=== PATIENT | male | born 1935 | race Caucasian/White ===

== ENCOUNTER → 2017-01-12 | Outpatient (CLI) | payer OTHER, MEDICARE ==
[~2017-01-12] MED LIST: ASPI81TA28 PO; ATOR-24 PO; CHOL100027 PO; CITA10TA4 PO; CMD3 PO; COEN1CAP28 PO; ESCI10TA17 PO; OMEG10007 PO; POLY335019 PO; PRLSR20 PO; PSYL48.58 PO; WARF5TAB90 PO
[2017-01-12 09:32] LABS: BASO % 0.7 %; BASO ABS # 0.04 K/uL (0-0.2); COMPLETE YES; HEMATOCRIT 43.9 % (42-52); IG% 0.2 %; LYMPH % 29.8 %; LYMPH ABS # 1.64 K/uL (1.2-3.4); MEAN CORPUSCULAR HEMOGLOBIN 32.1 pg (25-34); MEAN CORPUSCULAR HGB CONC 34.9 g/dl (32-36); MEAN PLATELET VOLUME 9.9 fL (7.4-10.4); MONO % 9.3 %; PLATELET COUNT 162 K/uL (130-400); RED BLOOD COUNT 4.77 M/uL (4.7-6.1); WHITE BLOOD COUNT 5.51 K/uL (4.8-10.8)
[2017-01-12 09:43] LABS: ALT/SGPT 24 U/L (12-78); BLOOD UREA NITROGEN 18 mg/dl (7-18); BUN/CREATININE RATIO 19.2 (10-20); CARBON DIOXIDE 29 mmol/L (21-32); CHLORIDE 101 mmol/L (98-107); CREATININE 0.92 mg/dl (0.60-1.40); GLUCOSE 86 mg/dl (70-99); POTASSIUM 4.1 mmol/L (3.5-5.1); SODIUM 137 mmol/L (136-145)
[2017-01-12 09:47] LABS: ALB/GLOB RATIO 1.1 (0.9-2); ALKALINE PHOSPHATASE 81 U/L (45-117); AST/SGOT 19 U/L (15-37); CHOLESTEROL 137 mg/dl (0-200); CHOLESTEROL/HDL RATIO 1.9; HDL CHOLESTEROL 74 mg/dl; LDL CHOLESTEROL CALCULATED 56 mg/dl; TRIGLYCERIDES 37 mg/dl (0-150); VERY LOW DENSITY LIPOPROT CALC 7 mg/dl
[2017-01-12 09:48] LABS: CALCIUM 9.3 mg/dl (8.5-10.1)
== END | disposition home or self-care (01) ==
LOC: C.LAB 07:28
PROVIDERS: ATTEND Internal Medicine
DX: Z79.01 Long term (current) use of anticoagulants (principal); Z12.5 Encounter for screening for malignant neoplasm of prostate

== ENCOUNTER 2018-01-01 13:07 | Emergency (ER) | payer OTHER, MEDICARE ==
[~2018-01-01] VITALS: Ht 172.7 cm; Wt 72.5 kg
[~2018-01-01 13:07] MED LIST changes: -CITA10TA4 PO; -CMD3 PO; -COEN1CAP28 PO; -OMEG10007 PO
[2018-01-01 13:13] VITALS: TEMP 36.8; Ht 172.7 cm; Wt 72.5 kg
[2018-01-01] MEDS ORDERED: BACITRACIN OINT 15 GM TUBE ONE (13:41)
--- NOTE | 2018-01-01 14:18 | EMERGENCY ROOM VISIT NOTE ---
History First contact with patient: 13:27 Chief Complaint: LACERATION/CUT (SUT/DERMABOND) Stated Complaint: CUT LEFT ARM - BLEEDING Nursing Triage Summary: triage note: Pt reports he stumbled and fell against to the side of his house. pt reports he cut his left elbow. pt reports he has a known balance problem. unable to assess left elbow cut in triage due to dressing intact on pt. History of Present Illness The patient is a 82 year old male who presents to the Emergency Room with complaints of an injury to his left arm. The patient reports that he lost balance and stumbled, scraping his left arm against the side of his house. This occurred a few hours ago. Patient reports a long history of balance problems and has had significant workup from his primary care provider due to this. He states that the symptoms today were not out of the ordinary for him. He contacted his PCP regarding the injury to his arm and was told to come here for evaluation. The patient takes Coumadin for a history of atrial fibrillation and follows with the anticoagulation clinic for this. He denies pain, numbness or weakness. His tetanus is up-to-date. Review of Systems A complete 6 point review of systems was reviewed with the patient with pertinent positives and negatives as per history of present illness. All else were negative. Past Medical/Surgical History Medical Problems: (1) A-fib (2) BPH (3) High cholesterol (4) Transient weakness of left lower extremity (5) Transient weakness of right lower extremity Surgical Problems: (1) H/O cardiac catheterization (2) S/P cataract surgery Family History FH: aneurysm Social History Smoking Status: Never Smoker Alcohol Use: none Drug Use: none Marital Status: Housing Status: lives with family Occupation Status: retired Current/Historical Medications Scheduled Aspirin (Aspirin Ec), 81 MG PO DAILY Atorvastatin (Lipitor), 40 MG PO QPM Cholecalciferol (Vitamin D 1000 Unit), 1,000 INTER.UNIT PO NOON Escitalopram (Lexapro), 15 MG PO DAILY Omeprazole (Prilosec), 20 MG PO QAM Warfarin Sodium (Coumadin), 4 MG PO DAILY Scheduled PRN Polyethylene Glycol 3350 (Miralax), 17 GM PO QPM PRN for Constipation Psyllium (Metamucil Original Textur), 1 TSP PO DAILY PRN for Constipation Physical Exam Vital Signs Date Time Temp Pulse Resp B/P (MAP) Pulse Ox O2 Delivery O2 Flow Rate FiO2 01/01/18 14:30 52 18 130/76 98 01/01/18 13:13 36.8 59 18 158/49 98 Room Air Physical Exam VITALS: Vitals are noted on the nurse's note and reviewed by myself. Vital signs stable. GENERAL: This is an 82-year-old male, in no acute distress, nondiaphoretic, well -developed well-nourished. SKIN: There is a superficial skin tear to the lateral aspect of the left elbow. No deep lacerations. The wound is clean appearing with no foreign body is present. MUSCULOSKELETAL: Full range of motion of the left elbow with no significant tenderness to palpation. NEURO: Patient was alert and oriented to person place and time. Sensation intact. Medical Decision & Procedures Medications Administered Medications (Trade) Dose Ordered Sig/Sienna Route Start Time Stop Time Status Last Admin Dose Admin Bacitracin (Bacitracin Oint) 45 appln STK-MED ONCE .ROUTE 01/01/18 13:41 01/01/18 13:42 DC 01/01/18 13:41 45 APPLN Medical Decision The patient was evaluated as above. Dressing was applied to the wound by nursing staff. Wound care instructions were discussed with the patient. He verbalized understanding of my assessment and treatment plan and was discharged home in good condition. The patient was independently evaluated by Dr. Nicole, ED attending physician, who agreed with my assessment and treatment plan. Medication Reconcilliation Current Medication List: was personally reviewed by me Blood Pressure Screening Patient's blood pressure: Elevated blood pressure Blood pressure disposition: Elevated BP felt to be situational Impression Primary Impression: Skin tear of elbow without complication Departure Information Dispostion Home / Self-Care Condition GOOD Referrals Evens Giron M.D. (PCP) Patient Instructions My [facility] Additional Instructions Proper wound care is essential for adequate wound healing and infection prevention. You can shower and clean the wound with soap and water. Do not scour over the wound, pat dry with a towel. Do not submerse the wound (i.e. bathe or dish wash) until the wound has fully healed. You can use an antibiotic ointment with a dressing over the wound for the next 3-4 days. After this time you may leave the wound dry and open to the air. For pain control, you can use the following [id number] medicines (if >12 yo): - Regular strength (325mg/tab) Tylenol (acetaminophen) 2 tabs every 4-6 hours as needed. Do not exceed 12 tablets in a 24 hour period. Avoid taking more than 4 grams (4000 mg) of Tylenol per day. This includes any other sources of acetaminophen you may take on a regular basis. Follow-up with your primary care provider for a recheck of the wound in 1 week. Return here for any signs of infection such as increasing redness, swelling, drainage from the wound or other new/concerning symptoms. Problem Qualifiers Primary Impression: Skin tear of elbow without complication Encounter type: initial encounter Laterality: left Qualified Codes: S51.012A - Laceration without foreign body of left elbow, initial encounter
[2018-01-01 14:30] VITALS: BP 130/76; PULSE 52; O2SAT 98
== END 2018-01-01 14:32 | disposition home or self-care (01) ==
LOC: C.EDB 13:08 → C.EDD 14:32
DX: S51.012A Laceration without foreign body of left elbow, initial encounter (principal); W22.8XXA Striking against or struck by other objects, initial encounter; Y92.009 Unspecified place in unspecified non-institutional (private) residence as the place of occurrence of the external cause; Z79.01 Long term (current) use of anticoagulants; I48.91 Unspecified atrial fibrillation; N40.0 Benign prostatic hyperplasia without lower urinary tract symptoms; E78.00 Pure hypercholesterolemia, unspecified; Z98.49 Cataract extraction status, unspecified eye; Z79.82 Long term (current) use of aspirin; Z79.899 Other long term (current) drug therapy

== ENCOUNTER 2022-07-16 16:49 | Inpatient (IN) ==
[2022-07-16] MEDS ORDERED: SODIUM CHLORIDE 0.9% 500 ML IV SCH (17:00)
--- NOTE | 2022-07-16 17:03 | Emergency Department Note ---
Impression & Plan Altered mental status, Dementia, Aggressive behavior, Acute UTI ED Provider Note NAME: HOLLI FUNG AGE: 87 SEX: M : 1935 ARRIVES VIA: Ambulance INFORMANT: [Patient][ems, nursing] ED PROVIDER(S): [Seferino Sierra MD] CHIEF COMPLAINT: Illness HISTORY OF PRESENT ILLNESS: The patient is a 87-year-old male who had a violent, anger outburst burst today towards his . Apparently, as per his , he has had a few of these outbursts the last few days. No physical violence reported. As per EMS, the patient has been cooperative during his time under their care. He has no complaints at the present time other than, he needs to urinate. The patient can really not provide any history. He has dementia. As per his family, he has had no cough or congestion. No shortness of breath. He has not been sick or ill, no medication changes. Given the circumstances, no further history obtainable. REVIEW OF SYSTEMS: Unobtainable given his dementia. PMHx/PSHx: See Below SOCIAL HISTORY: See Below. PHYSICAL EXAM: GENERAL: Patient is in no acute distress. Thin and frail. HEENT: No acute trauma, normocephalic atraumatic, mucous membranes moist, no nasal congestion, no scleral icterus. NECK: No stridor, no adenopathy, no meningismus, trachea is midline. LUNGS: Clear to auscultation bilaterally when listening anterior, no rhonchi or wheezing, no respiratory distress. HEART: Without murmurs gallops or rubs, regular rate and rhythm. Heart tones are distant. ABDOMEN: Soft, nontender, bowel sounds positive, no peritonitis. EXTREMITIES: No cyanosis or edema, full range of motion of all the joints without pain or difficulty, no signs for acute trauma. NEUROLOGIC: Awake and alert, no acute motor or sensory deficits, no focal weakness. Cooperative. Calm. SKIN: No rash, no jaundice, no diaphoresis. DIFFERENTIAL DIAGNOSIS: Worsening dementia, intracranial bleeding, UTI, infection, electrolyte imbalance, anemia, urinary retention, among others. EMERGENCY DEPARTMENT COURSE/PROCEDURES: ECG: Indication was change in behavior and mentation. The ECG shows atrial fibrillation with a rate of 68. PVCs are present. There is a potential old anterior infarct. There is no ST elevation. There is some T wave inversion in the inferior leads. QTC is 446. Compared to an ECG from 30 April 2020, inferior T wave inversions are now present. PVCs are now present. Continuous Cardiac Monitoring: An order was placed for continuous cardiac monitoring. The monitor shows a rate of 62 with atrial fibrillation. Post void bladder scan did not show any significant retention. MEDICAL DECISION MAKING: There is no leukocytosis or concerning anemia. There is a normal platelet count. No renal failure or significant electrolyte abnormality. No concerning liver enzyme elevation. ECG shows atrial fibrillation, no acute ischemia. Ca rdiac enzyme testing x1 is not consistent with acute cardiac injury. Patient appears to be in a euthyroid state. Urinalysis does show infection. COVID, influenza and RSV test were negative. Chest film did not show pneumonia or CHF. Brain CT showed no acute bleed or mass-effect. The patient presents with aggressive outbursts. He has underlying dementia and now appears to have a UTI. His family does not feel he is safe for discharge home, they are worried that he may hurt himself or someone else in the family. I do believe the UTI could be responsible for his change in behavior and current mental state. The patient was given IV ceftriaxone, he was given IV saline. I did speak with the family, I spoke with case management, the on-call hospitalist was consulted. Patient has been cooperative during his stay in the ED. Past Med/Surg History Medical History A-fib Abnormal EKG Acid reflux disease Acute hyponatremia Angioma Anxiety Ataxia Atrial flutter Atypical chest pain BMI 23.0-23.9, adult CAD (coronary artery disease) Carotid artery plaque Cerebral arterial aneurysm Cerebrovascular disease Cognitive and behavioral changes Compression fracture Constipation Diarrhea Elevated PSA Enlarged prostate with lower urinary tract symptoms (LUTS) Generalized weakness High cholesterol Hyperlipidemia Hypertension Hyponatremia Lightheadedness Mild cognitive impairment Moderate mitral regurgitation Multiple benign nevi Obstructive sleep apnea Osteopenia hx compression fx. alendronate started 01/2019 Paroxysmal atrial fibrillation Poor balance Seborrheic keratosis Skin tear of elbow without complication Subungual hemorrhage Transient weakness of left lower extremity Transient weakness of right lower extremity Vitamin D deficiency Weakness Surgical History H/O cardiac catheterization History of colonoscopy History of hernia surgery History of rectal surgery S/P cataract surgery Family History Brother Prostate cancer Unknown Prostate cancer Other No significant family history Denies family history of Ovarian cancer Breast cancer Lung cancer Colorectal cancer Social History Smoking Status: Never smoker Second Hand Exposure: No; Do You Dip or Chew Tobacco: No; Hx Alcohol Use: No Hx Substance Use: No Preferred Language: Italian Communication Ability: Impaired Communication Ability Comment: Pt has dementia Visual Impairment: Limited Hearing Ability: Normal 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 Beliefs That Will Affect Care: None marital status: Current Living Situation: Spouse current occupational status: retired Other Information That Helps Us Care for You: No Feels Safe at Home: Yes Safety Concerns: Feels Safe At This Time Childhood Exposure to Second-Hand Smoke: No caffeine: No Dental Care, Regularly: Yes Physical Activity Frequency: 1-2 Times per Week Seatbelt Use: always Sunscreen Use: Yes Assistive Devices: Glasses and Walker Allergies Allergies Allergy/AdvReac Type Severity Reaction Status Date / Time Penicillins Allergy Mild UNKNOWN Verified 07/13/22 11:47 Sulfa (Sulfonamide Allergy Unknown UNKNOWN Verified 07/13/22 11:47 Antibiotics) thimerosal Allergy Unknown SWELLING Verified 07/13/22 11:47 AT SITE OF APPLICATION Home Meds Home Medications Medication Instructions Recorded Confirmed ascorbic acid (vitamin C) 500 mg 500 mg PO QPM 05/09/19 07/13/22 capsule calcium carbonate 600 mg calcium 600 mg PO AMPM 05/09/19 07/13/22 (1,500 mg) tablet (Calcium) cholecalciferol (vitamin D3) 25 1,000 units PO QAM #0 tabs 05/09/19 07/13/22 mcg (1,000 unit) tablet (Vitamin D3) [id number]-dbm-[id number] acid-vit 1 tab PO QAM 09/29/21 07/13/22 K-lycop 400 mcg-20 mcg-370 mcg tablet (Men's 50 Plus Multivitamin) atorvastatin 40 mg tablet (Lipitor) 40 mg PO HS 04/30/22 07/13/22 tamsulosin 0.4 mg capsule 0.4 mg PO HS 04/30/22 07/13/22 Previous Rx's Medication Instructions Recorded alendronate 70 mg tablet 70 mg PO WK #12 tabs 07/26/21 escitalopram oxalate 10 mg tablet 10 mg PO QAM #90 tabs 01/26/22 (Lexapro) warfarin 4 mg tablet See Rx Instructions PO UD #90 tabs 02/15/22 omeprazole magnesium 20 mg 20 mg PO QAM #90 caps 05/04/22 tablet,delayed release (Prilosec OTC) donepezil 10 mg tablet 10 mg PO HS #90 tabs 06/27/22 memantine 10 mg tablet (Namenda) 10 mg PO BID 90 days #180 tabs 07/12/22 Results & Data (ED) Vital Signs Vital Signs - 24 hr 07/16/22 16:58 07/16/22 17:28 07/16/22 16:57 Temperature 36.9 C Temperature Source Oral Pulse Rate 62 61 Pulse Rate [Brachial] Pulse Rate from SpO2 Sensor 62 Pulse Rhythm Regular Pulse Strength Normal Respiratory Rate 20 31 H Respiratory Effort / Characteristics Non-Labored Spontaneous Respiratory Depth Normal Respiratory Pattern Regular Blood Pressure 113/54 L Blood Pressure [Right Arm] Blood Pressure Mean 73 Blood Pressure Mean [Right Arm] Blood Pressure Position Sitting Blood Pressure Position [Right Arm] Pulse Oximetry 99 96 Oxygen Delivery Method Room Air Room Air Sepsis Recent Fever Within 48 Hours No Sepsis New/Unexplained Change in Mental Status N/A Sepsis Action Taken by Nursing No Action Required 07/16/22 17:00 07/16/22 17:00 07/16/22 17:30 Temperature Temperature Source Pulse Rate 71 63 Pulse Rate [Brachial] Pulse Rate from SpO2 Sensor 86 64 Pulse Rhythm Pulse Strength Respiratory Rate 23 15 Respiratory Effort / Characteristics Respiratory Depth Respiratory Pattern Blood Pressure 110/85 Blood Pressure [Right Arm] Blood Pressure Mean 93 Blood Pressure Mean [Right Arm] Blood Pressure Position Blood Pressure Position [Right Arm] Pulse Oximetry 90 99 Oxygen Delivery Method Sepsis Recent Fever Within 48 Hours Sepsis New/Unexplained Change in Mental Status Sepsis Action Taken by Nursing 07/16/22 18:00 07/16/22 18:02 07/16/22 18:02 Temperature Temperature Source Pulse Rate 67 68 Pulse Rate [Brachial] Pulse Rate from SpO2 Sensor 75 Pulse Rhythm Pulse Strength Respiratory Rate 18 16 Respiratory Effort / Characteristics Respiratory Depth Respiratory Pattern Blood Pressure 106/82 Blood Pressure [Right Arm] Blood Pressure Mean 90 Blood Pressure Mean [Right Arm] Blood Pressure Position Blood Pressure Position [Right Arm] Pulse Oximetry 92 Oxygen Delivery Method Sepsis Recent Fever Within 48 Hours Sepsis New/Unexplained Change in Mental Status Sepsis Action Taken by Nursing 07/16/22 19:58 Temperature Temperature Source Pulse Rate Pulse Rate [Brachial] 74 Pulse Rate from SpO2 Sensor Pulse Rhythm Pulse Strength Respiratory Rate Respiratory Effort / Characteristics Non-Labored Spontaneous Respiratory Depth Normal Respiratory Pattern Blood Pressure Blood Pressure [Right Arm] 132/85 Blood Pressure Mean Blood Pressure Mean [Right Arm] 100 Blood Pressure Position Blood Pressure Position [Right Arm] Lying Pulse Oximetry Oxygen Delivery Method Sepsis Recent Fever Within 48 Hours Sepsis New/Unexplained Change in Mental Status Sepsis Action Taken by [facility] Medications Current Medication List: was personally reviewed by me Laboratory Data Attestation: I reviewed the patient's lab results. Result diagrams: 07/16/22 17:18 07/16/22 17:18 Lab Results 07/16/22 07/16/22 07/16/22 Range/Units 17:03 17:18 17:18 WBC 4.36 L (4.8-10.8) K/ul RBC 4.08 L (4.63-6.08) M/uL Hgb 13.2 L (14.0-18.0) g/dl Hct 38.7 L (40.1-51.0) % MCV 94.9 (80.0-100.0) fL MCH 32.4 (25.0-34.0) pg MCHC 34.1 (32.0-36.0) g/dL RDW Std Deviation 45.3 (36.4-46.3) fL RDW Coeff of Susan 13.2 (11.5-14.5) % Plt Count 145 (130-400) K/uL MPV 10.6 (9.4-12.4) fL Immature Gran % (Auto) 0.2 % Neut % (Auto) 65.1 % Lymph % (Auto) 25.0 % [place] % (Auto) 8.5 % Eos % (Auto) 0.7 % Baso % (Auto) 0.5 % Neut # (Auto) 2.84 (1.4-6.5) K/uL Lymph # (Auto) 1.09 L (1.2-3.4) K/uL [place] # (Auto) 0.37 (0.24-0.82) K/uL Eos # (Auto) 0.03 (0-0.50) K/uL Baso # (Auto) 0.02 (0-0.2) K/uL Immature Gran # (Auto) 0.01 (0.00-0.02) K/uL Sodium 139 (136-145) mmol/L Potassium 4.3 (3.5-5.1) mmol/L Chloride 105 (98-107) mmol/L Carbon Dioxide 29 (21-32) mmol/L Anion Gap 5 (3-11) BUN 36 H (6-23) mg/dl Creatinine 1.01 (0.6-1.4) mg/dl Est Cr Clr Drug Dosing Not Reportable Est GFR ( Amer) 78.2 ml/min Est GFR (Non-Af Amer) 67.5 ml/min BUN/Creatinine Ratio 35.6 H (10-20) Glucose 84 (70-99(Fasting)) mg/dl Calcium 8.8 (8.5-10.1) mg/dl Magnesium 2.0 (1.7-2.4) mg/dl Total Bilirubin 0.9 (0.2-1.0) mg/dl AST 20 (13-39) U/L ALT 13 (7-52) U/L Alkaline Phosphatase 57 (34-104) U/L Troponin I High Sens 11.4 (0-20) pg/ml Total Protein 6.5 (6.0-8.3) gm/dl Albumin 3.7 (3.4-5.0) gm/dl Globulin 2.8 (2.5-4.0) gm/dl Albumin/Globulin Ratio 1.3 (0.9-2) TSH (0.300-4.500) uIu/ml Urine Color Dark Yellow Urine Appearance Cloudy A (Clear) Urine pH 6.5 (4.5-7.5) Ur Specific [place] 1.027 (1.000-1.030) Urine Protein Trace H (Negative) Urine Glucose (UA) Negative (Negative) Urine Ketones Trace H (Negative) Urine Blood Trace H (Negative) Urine Nitrite Positive A (Negative) Urine Bilirubin Negative (Negative) Urine Urobilinogen Negative (Negative) Ur Leukocyte Esterase 3+ H (Negative) Urine WBC (Auto) >30 H (0-5) /hpf Urine RBC (Auto) 0-4 (0-4) /hpf U Hyaline Cast (Auto) 1-5 (0-5) /lpf U Epithel Cells (Auto) 0-5 (0-5) /lpf Urine Bacteria (Auto) 1+ H (Negative) Urine Mucus Present A (None Prsent) SARS-CoV-2 (PCR) (Negative) Influenza Type A (PCR) (Neg) Influenza Type B (PCR) (Neg) RSV (RT-PCR) (Neg) 07/16/22 07/16/22 Range/Units 17:18 17:56 WBC (4.8-10.8) K/ul RBC (4.63-6.08) M/uL Hgb (14.0-18.0) g/dl Hct (40.1-51.0) % MCV (80.0-100.0) fL MCH (25.0-34.0) pg MCHC (32.0-36.0) g/dL RDW Std Deviation (36.4-46.3) fL RDW Coeff of Susan (11.5-14.5) % Plt Count (130-400) K/uL MPV (9.4-12.4) fL Immature Gran % (Auto) % Neut % (Auto) % Lymph % (Auto) % [place] % (Auto) % Eos % (Auto) % Baso % (Auto) % Neut # (Auto) (1.4-6.5) K/uL Lymph # (Auto) (1.2-3.4) K/uL [place] # (Auto) (0.24-0.82) K/uL Eos # (Auto) (0-0.50) K/uL Baso # (Auto) (0-0.2) K/uL Immature Gran # (Auto) (0.00-0.02) K/uL Sodium (136-145) mmol/L Potassium (3.5-5.1) mmol/L Chloride (98-107) mmol/L Carbon Dioxide (21-32) mmol/L Anion Gap (3-11) BUN (6-23) mg/dl Creatinine (0.6-1.4) mg/dl Est Cr Clr Drug Dosing Est GFR ( Amer) ml/min Est GFR (Non-Af Amer) ml/min BUN/Creatinine Ratio (10-20) Glucose (70-99(Fasting)) mg/dl Calcium (8.5-10.1) mg/dl Magnesium (1.7-2.4) mg/dl Total Bilirubin (0.2-1.0) mg/dl AST (13-39) U/L ALT (7-52) U/L Alkaline Phosphatase (34-104) U/L Troponin I High Sens (0-20) pg/ml Total Protein (6.0-8.3) gm/dl Albumin (3.4-5.0) gm/dl Globulin (2.5-4.0) gm/dl Albumin/Globulin Ratio (0.9-2) TSH 1.553 (0.300-4.500) uIu/ml Urine Color Urine Appearance (Clear) Urine pH (4.5-7.5) Ur Specific [place] (1.000-1.030) Urine Protein (Negative) Urine Glucose (UA) (Negative) Urine Ketones (Negative) Urine Blood (Negative) Urine Nitrite (Negative) Urine Bilirubin (Negative) Urine Urobilinogen (Negative) Ur Leukocyte Esterase (Negative) Urine WBC (Auto) (0-5) /hpf Urine RBC (Auto) (0-4) /hpf U Hyaline Cast (Auto) (0-5) /lpf U Epithel Cells (Auto) (0-5) /lpf Urine Bacteria (Auto) (Negative) Urine Mucus (None Prsent) SARS-CoV-2 (PCR) NEGATIVE (Negative) Influenza Type A (PCR) Negative (Neg) Influenza Type B (PCR) Negative (Neg) RSV (RT-PCR) Negative (Neg) Administered Medications Discontinued Medications Sodium Chloride (Nss) 500 mls @ 999 mls/hr IV .Q31M DEB Stop: 07/16/22 17:30 Last Infusion: 07/16/22 17:52 Dose: 0 mls/hr Documented By: [id number] Admin: 07/16/22 17:30 Dose: 999 mls/hr Documented By: [email or web address] Ceftriaxone Sodium (Rocephin) 2,000 mg in 70 mls @ 140 mls/hr IV NOW STA Stop: 07/16/22 18:06 Last Infusion: 07/16/22 18:52 Dose: 0 mls/hr Documented By: [id number] Admin: 07/16/22 17:53 Dose: 140 mls/hr Documented By: [id number] Imaging Data Radiologist's Impression: Chest X-Ray 07/16/22 17:00 XR chest 1V portable HISTORY: weakness COMPARISON: Chest 05/13/2021. FINDINGS: No pneumothorax. No pleural effusions. The heart remains mildly enlarged. There is mild chronic interstitial thickening, unchanged. No new focal lung consolidations to suggest a pneumonia. No evidence for pulmonary edema. Degenerative changes again noted within the shoulders. There is a electronic device seen within the left upper chest. IMPRESSION: Stable mild cardiomegaly. Otherwise, no acute process within the chest. ACT 112: Negative or not required by law. Electronically signed by: Cade Pak M.D. 07/16/2022 5:[address] 07/16/22 17:[address] DOSE: 614.27 mGy.cm HISTORY: Altered mental status. TECHNIQUE: Multiaxial CT images of the head were performed without the use of intravenous contrast. Automated exposure control was utilized for this study. A dose lowering technique was utilized adhering to the principles of ALARA. Comparison: Head CT 04/30/2022. Findings: The paranasal sinuses and mastoid air cells are clear. The calvarium and skull base are intact. There is no mass, hematoma, midline shift, acute infarct. White matter hypodensity is nonspecific but suggestive of microvascular ischemic change. The ventricles and sulci demonstrate mild age-related involutional changes. Impression: No acute intracranial abnormality. Atrophy and microvascular ischemic changes. ACT 112: Negative or not required by law. Electronically signed by: Cade Pak M.D. 07/16/2022 5:46 PM Discharge Plan Visit Data Chief Complaint: Illness Stated Complaint: PT EVAL. PT WAS COMBATIVE AT HOME ED Provider: Seferino Sierra Discharge Problem: Altered mental status, Dementia, Aggressive behavior, Acute UTI Patient Disposition: Admitted As Inpatient Condition: Good Forms Stand Alone Forms: My [facility] Prescriptions Prescriptions: No Action Men's 50 Plus Multivitamin 400-20-370 mcg tablet 1 tab PO QAM cholecalciferol (vitamin D3) [Vitamin D3] 1,000 unit (25 mcg) tablet 1,000 units PO QAM Qty: 0 alendronate 70 mg tablet 70 mg PO WK Qty: 12 3RF Rx Instructions: MONDAY escitalopram oxalate [Lexapro] 10 mg tablet 10 mg PO QAM Qty: 90 3RF warfarin 4 mg tablet See Rx Instructions PO UD Qty: 90 1RF Rx Instructions: 2mg q //, 4mg x 4 days per [facility] PO use as directed; Prilosec OTC 20 mg tablet,delayed release (DR/EC) 20 mg PO QAM Qty: 90 3RF donepezil 10 mg tablet 10 mg PO HS Qty: 90 3RF ascorbic acid (vitamin C) 500 mg capsule 500 mg PO QPM calcium carbonate [Calcium 600] 600 mg calcium (1,500 mg) tablet 600 mg PO AMPM memantine [Namenda] 10 mg tablet 10 mg PO BID 90 Days Qty: 180 3RF tamsulosin 0.4 mg capsule 0.4 mg PO HS atorvastatin [Lipitor] 40 mg tablet 40 mg PO HS Referrals Referrals: Evens Giron MD [Primary Care Provider] -
[2022-07-16 17:19] LABS: Appearance Urine Cloudy (Clear); Bacteria Urine Automated 1+ (Negative); Bilirubin Urine Negative (Negative); Blood Urine Trace (Negative); Color Urine Dark Yellow; Epithelial Cell Urine Auto 0-5 /lpf (0-5); Glucose Urine UA Negative (Negative); Ketones Urine Trace (Negative); Leukocyte Esterase Urine 3+ (Negative); Nitrite Urine Positive (Negative); Protein Urine Trace (Negative); Specific Gravity Urine 1.027 (1.000-1.030); Urobilinogen Urine Negative (Negative); WBC Urine Automated >30 /hpf (0-5); pH Urine 6.5 (4.5-7.5)
[2022-07-16 17:33] LABS: Basophils # (auto) 0.02 K/uL (0-0.2); Basophils % (auto) 0.5 %; Eosinophils # (auto) 0.03 K/uL (0-0.50); Eosinophils % (auto) 0.7 %; Hematocrit (blood only) 38.7 % (40.1-51.0); Hemoglobin 13.2 g/dl (14.0-18.0); Immature Granulocytes # (auto) 0.01 K/uL (0.00-0.02); Immature Granulocytes % (auto) 0.2 %; Lymphocytes # (auto) 1.09 K/uL (1.2-3.4); Mean Corpuscular Hemoglobin 32.4 pg (25.0-34.0); Mean Corpuscular Hgb Conc 34.1 g/dL (32.0-36.0); Mean Corpuscular Volume 94.9 fL (80.0-100.0); Mean Platelet Volume 10.6 fL (9.4-12.4); Monocytes # (auto) 0.37 K/uL (0.24-0.82); Monocytes % (auto) 8.5 %; Neutrophils # (auto) 2.84 K/uL (1.4-6.5); Neutrophils % (auto) 65.1 %; Platelet Count 145 K/uL (130-400); RDW Coefficient of Variation 13.2 % (11.5-14.5); RDW Standard Deviation 45.3 fL (36.4-46.3); Red Blood Count 4.08 M/uL (4.63-6.08); White Blood Count 4.36 K/ul (4.8-10.8)
[2022-07-16] MEDS ORDERED: cefTRIAXone SODIUM 2,000 MG/70 ML BAG IV STA (17:37)
--- NOTE | 2022-07-16 17:39 | XRay Report ---
XR chest 1V portable HISTORY: weakness COMPARISON: Chest 05/13/2021. FINDINGS: No pneumothorax. No pleural effusions. The heart remains mildly enlarged. There is mild chr onic interstitial thickening, unchanged. No new focal lung consolidations to suggest a pneumonia. No evidence for pulmonary edema. Degenerative changes again noted within the shoulders. There is a elect ronic device seen within the left upper chest. IMPRESSION: Stable mild cardiomegaly. Otherwise, no acute process within the chest. ACT 112: Negative or not required by law. Electronically signed by: Cade Pak M.D. 07/16/2022 5:37 PM
[2022-07-16 17:43] LABS: Mucus Urine Present (None Prsent); RBC Urine Automated 0-4 /hpf (0-4)
--- NOTE | 2022-07-16 17:48 | CT Scan Report ---
HEAD CT NONCONTRAST CT DOSE: 614.27 mGy.cm HISTORY: Altered mental status. TECHNIQUE: Multiaxial CT images of the head were performed without the use of intravenous contrast. A utomated exposure control was utilized for this study. A dose lowering technique was utilized adheri ng to the principles of ALARA. Comparison: Head CT 04/30/2022. Findings: The paranasal sinuses and mastoid air cells are clear. The calvarium and skull base are int act. There is no mass, hematoma, midline shift, acute infarct. White matter hypodensity is nonspecifi c but suggestive of microvascular ischemic change. The ventricles and sulci demonstrate mild age-rela netta involutional changes. Impression: No acute intracranial abnormality. Atrophy and microvascular ischemic changes. ACT 112: Negative or not required by law. Electronically signed by: Cade Pak M.D. 07/16/2022 5:46 PM
[2022-07-16 17:54] LABS: Alanine Aminotransferase 13 U/L (7-52); Albumin Globulin Ratio 1.3 (0.9-2); Albumin Level 3.7 gm/dl (3.4-5.0); Alkaline Phosphatase 57 U/L (34-104); Anion Gap 5 (3-11); Aspartate Aminotransferase 20 U/L (13-39); BUN Creatinine Ratio 35.6 (10-20); Bilirubin,Total 0.9 mg/dl (0.2-1.0); Blood Urea Nitrogen 36 mg/dl (6-23); Calcium 8.8 mg/dl (8.5-10.1); Carbon Dioxide 29 mmol/L (21-32); Chloride 105 mmol/L (98-107); Est GFR (African American) 78.2 ml/min; Est GFR (Non-African American) 67.5 ml/min; Globulin 2.8 gm/dl (2.5-4.0); Glucose 84 mg/dl (70-99(Fasting)); Potassium 4.3 mmol/L (3.5-5.1); Sodium 139 mmol/L (136-145); Total Protein 6.5 gm/dl (6.0-8.3)
[2022-07-16 18:01] LABS: Troponin I High Sensitivity 11.4 pg/ml (0-20)
--- NOTE | 2022-07-16 18:25 | History & Physical Report ---
Date of Service July 16, 2022 Assessment & Plan (1) UTI (urinary tract infection): Plan: Selvin is an 87-year-old male with a past medical history of A. fib with bradycardia, ataxia, CAD, BPH with LUTS, hyperlipidemia, hypertension, chronic venous insufficiency, and dementia who has had increased agitation in the last several days on a baseline of underlying dementia. With polyuria History is limited by severe dementia. No elevated PVR. Patient's family feels they are no longer able to care for him at home or provide a safe environment, patient lives alone with his who is also elderly and frail Behavioral disturbance 2/2 UTI, progressive dementia - CThead: No acute findings, atrophy and microvascular ischemic changes - CXR: No acute process - EKG: A. fib with normal rate, QTC 446 Hemoglobin 13.2 Hemodynamically stable UA infected appearing. UC pending - Rocephin - PT/OT/Case Management consulted for placement A. fib suspected permanent with bradycardia Avoid negative chronotropic's given bradycardic response Continue warfarin INR pending Dementia Delirium precautions Continue donepezil Continue Lexapro HLD Continue atorvastatin DVT prophylaxis: Warfarin Diet: Heart healthy Disposition: Medical surgical CODE STATUS DNR (2) Atrial fibrillation with slow ventricular response: (3) Dementia: (4) A-fib: (5) Ataxia: (6) CAD (coronary artery disease): (7) Carotid artery plaque: (8) Hyperlipidemia: (9) Hypertension: (10) Paroxysmal atrial fibrillation: (11) Atrial fibrillation, permanent: History of Present Illness Primary Care Provider: Evens Giron MD Selvin is an 87-year-old male with a past medical history of A. fib with bradycardia, ataxia, CAD, BPH with LUTS, hyperlipidemia, hypertension, chronic venous insufficiency, and dementia who has had increased agitation in the last several days on a baseline of underlying dementia. With polyuria History is limited by severe dementia. No elevated PVR. Patient history is severely limited by dementia. With polyuria in the ER. Seen with family. Has dementia. INcreasingly combative and verbally threatening at home. Agitated for several days, live alone with his who is also elderly with osteoporosis. Denies pain at bedside. No fevers/chills/sweats. No chest pain or chest pressure. NO polyuria at home, but having to pee very often in ER and notes has had increased urinary incontinence. notes that he has progressed to the point where she cannot safely care for him, and does not feel he is safe to be home. Would like placement into discussed with case management. Medical History: Reviewed Medications: Reviewed Surgical History: Reviewed Allergies: Reviewed Social History: Reviewed Code Status: DNR/DNI. Discussed with family, would not want heroic measures Allergies Allergy/AdvReac Type Severity Reaction Status Date / Time Penicillins Allergy Mild UNKNOWN Verified 07/13/22 11:47 Sulfa (Sulfonamide Allergy Unknown UNKNOWN Verified 07/13/22 11:47 Antibiotics) thimerosal Allergy Unknown SWELLING Verified 07/13/22 11:47 AT SITE OF APPLICATION Home Medications Medication Instructions Recorded Confirmed Type ascorbic acid (vitamin C) 500 mg 500 mg PO QPM 05/09/19 07/13/22 History capsule calcium carbonate 600 mg calcium 600 mg PO AMPM 05/09/19 07/13/22 History (1,500 mg) tablet (Calcium) cholecalciferol (vitamin D3) 25 1,000 units PO QAM #0 tabs 05/09/19 07/13/22 History mcg (1,000 unit) tablet (Vitamin D3) alendronate 70 mg tablet 70 mg PO WK #12 tabs 07/26/21 07/13/22 Rx eugasnprlaet-rwe-vbbzz acid-vit 1 tab PO QAM 09/29/21 07/13/22 History K-lycop 400 mcg-20 mcg-370 mcg tablet (Men's 50 Plus Multivitamin) escitalopram oxalate 10 mg tablet 10 mg PO QAM #90 tabs 01/26/22 07/13/22 Rx (Lexapro) warfarin 4 mg tablet See Rx Instructions PO UD #90 tabs 02/15/22 07/13/22 Rx atorvastatin 40 mg tablet (Lipitor) 40 mg PO HS 04/30/22 07/13/22 History tamsulosin 0.4 mg capsule 0.4 mg PO HS 04/30/22 07/13/22 History omeprazole magnesium 20 mg 20 mg PO QAM #90 caps 05/04/22 07/13/22 Rx tablet,delayed release (Prilosec OTC) donepezil 10 mg tablet 10 mg PO HS #90 tabs 06/27/22 07/13/22 Rx memantine 10 mg tablet (Namenda) 10 mg PO BID 90 days #180 tabs 07/12/22 07/13/22 Rx Past Med/Surg History Medical History A-fib Abnormal EKG Acid reflux disease Acute hyponatremia Angioma Anxiety Ataxia Atrial flutter Atypical chest pain BMI 23.0-23.9, adult CAD (coronary artery disease) Carotid artery plaque Cerebral arterial aneurysm Cerebrovascular disease Cognitive and behavioral changes Compression fracture Constipation Diarrhea Elevated PSA Enlarged prostate with lower urinary tract symptoms (LUTS) Generalized weakness High cholesterol Hyperlipidemia Hypertension Hyponatremia Lightheadedness Mild cognitive impairment Moderate mitral regurgitation Multiple benign nevi Obstructive sleep apnea Osteopenia hx compression fx. alendronate started 01/2019 Paroxysmal atrial fibrillation Poor balance Seborrheic keratosis Skin tear of elbow without complication Subungual hemorrhage Transient weakness of left lower extremity Transient weakness of right lower extremity Vitamin D deficiency Weakness Surgical History H/O cardiac catheterization History of colonoscopy History of hernia surgery History of rectal surgery S/P cataract surgery Family History Brother Prostate cancer Unknown Prostate cancer Other No significant family history Denies family history of Ovarian cancer Breast cancer Lung cancer Colorectal cancer Social History Smoking Status: Never smoker Hx Alcohol Use: No Hx Substance Use: No Preferred Language: [place] Communication Ability: Effective Visual Impairment: Limited Hearing Ability: Normal Sky Cap Required: No marital status: Current Living Situation: Spouse current occupational status: retired Feels Safe at Home: Yes Childhood Exposure to Second-Hand Smoke: No caffeine: No Dental Care, Regularly: Yes Physical Activity Frequency: 1-2 Times per Week Seatbelt Use: always Sunscreen Use: Yes Review of Systems Review of Systems: All systems reviewed & are unremarkable except as noted in Subjective and Unobtainable due to cognitive status Physical Exam Physical Exam: General: Prominent dementia. Oriented to name only. Unable to apply medical information to circumstances or give informed medical answers. HEENT: Atraumatic, normocephalic. Vision/hearing grossly intact Pulm: CTAB A&P. -wheezes, -rales, -rhonchi. Symmetrical chest rise. No increase in work of breathing. No respiratory distress. Cardiac: RRR, -mrg. Radial pulses intact and symmetrical. Abdominal: Nontender, nondistended, soft. BS present. Extremities: Warm, dry Results & Data Results & Data ([facility]) Vital Signs (Past 12 Hours) Vital Signs Temp Pulse Resp BP Pulse Ox O2 Del Method 07/16/22 18:02 68 16 07/16/22 18:02 106/82 07/16/22 18:00 67 18 92 07/16/22 17:30 63 15 99 07/16/22 17:00 71 23 90 07/16/22 17:00 110/85 07/16/22 16:57 61 31 H 96 07/16/22 17:28 Room Air 07/16/22 16:58 36.9 C 62 20 113/54 L 99 Room Air PG Care Time/CCT Total # of Minutes Spent Total Time Spent with Patient: Total time spent is greater than 50% in coordination of care (as documented) at patient's floor/unit and/or counseling patient: Coding Level of Care Code INT OBSERVATION CARE 50M LVL 2 Diagnoses UTI (urinary tract infection) N39.0 Atrial fibrillation with slow ventricular response I48.91 Dementia F03.90 A-fib I48.2 Atrial fibrillation type: chronic Ataxia R27.0 CAD (coronary artery disease) I25.10 Carotid artery plaque I65.29 Hyperlipidemia E78.5 Hypertension I10 Paroxysmal atrial fibrillation I48.0 Atrial fibrillation, permanent I48.21 (1) A-fib Atrial fibrillation type: chronic Qualified Code(s): I48.2 - Chronic atrial fibrillation
[2022-07-16 19:26] LABS: Influenza A virus by PCR Negative (Neg); Influenza B virus by PCR Negative (Neg); RSV by PCR Negative (Neg); SARS CoV2 RNA(COVID-19)Cepheid NEGATIVE (Negative)
[2022-07-16] MEDS ORDERED: ACETAMINOPHEN 325 MG TAB PO PRN (22:26)
[2022-07-16 22:45] LABS: INR 1.2 (0.9-1.1)
[2022-07-16] MEDS: DONEPEZIL HCL 10 MG TAB PO SCH (22:51)
[2022-07-16] MEDS: TAMSULOSIN HCL 0.4 MG CAP PO SCH (22:51)
[2022-07-16] MEDS: MEMANTINE HCL 10 MG TAB PO SCH (22:51)
[2022-07-16] MEDS: ATORVASTATIN 40 MG TAB PO SCH (22:51)
[2022-07-16] MEDS ORDERED: WARFARIN SOD 2 MG TAB PO SCH (23:15)
[2022-07-16] MEDS ORDERED: WARFARIN SOD 2 MG TAB PO ONE (23:30)
[2022-07-17 06:47] LABS: INR 1.3 (0.9-1.1); Prothrombin Time 13.6 Seconds (9.0-12.0)
[2022-07-17 07:03] LABS: BUN Creatinine Ratio 35.2 (10-20); Calcium 8.7 mg/dl (8.5-10.1); Creatinine Clr Calc Pharmacy 49.3 ml/min; Est GFR (African American) 90.8 ml/min; Est GFR (Non-African American) 78.3 ml/min; Potassium 4.6 mmol/L (3.5-5.1)
[2022-07-17 07:21] LABS: Acanthocytes 1+; Basophils # (auto) 0.04 K/uL (0-0.2); Basophils % (auto) 0.8 %; Echinocytes 1+; Eosinophils # (auto) 0.07 K/uL (0-0.50); Eosinophils % (auto) 1.3 %; Hematocrit (blood only) 36.3 % (40.1-51.0); Hemoglobin 12.7 g/dl (14.0-18.0); Immature Granulocytes # (auto) 0.02 K/uL (0.00-0.02); Immature Granulocytes % (auto) 0.4 %; Lymphocytes # (auto) 1.28 K/uL (1.2-3.4); Lymphocytes % (auto) 24.6 %; Mean Corpuscular Hemoglobin 32.9 pg (25.0-34.0); Mean Platelet Volume 10.4 fL (9.4-12.4); Monocytes # (auto) 0.51 K/uL (0.24-0.82); Monocytes % (auto) 9.8 %; Neutrophils # (auto) 3.28 K/uL (1.4-6.5); Neutrophils % (auto) 63.1 %; Platelet Count 128 K/uL (130-400); RDW Standard Deviation 44.8 fL (36.4-46.3); Red Blood Count 3.86 M/uL (4.63-6.08)
[2022-07-17] MEDS: MEMANTINE HCL 10 MG TAB PO SCH ×2 (08:51→20:00)
[2022-07-17] MEDS: ESCITALOPRAM OXALATE 10 MG TAB PO SCH (08:51)
--- NOTE | 2022-07-17 11:14 | Electrocardiogram Report ---
Test Reason : Blood Pressure : / mmHG Vent. 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
--- NOTE | 2022-07-17 11:48 | Hospitalist Progress Note ---
Date of Service July 17, 2022 Assessment & Plan (1) UTI (urinary tract infection): Plan: Selvin is an 87-year-old male with a past medical history of A. fib with bra dycardia, ataxia, CAD, BPH with LUTS, hyperlipidemia, hypertension, chronic venous insufficiency, and dementia who has had increased agitation in the last several days on a baseline of underlying dementia. With polyuria History is limited by severe dementia. No elevated PVR. Patient's family feels they are no longer able to care for him at home or provide a safe environment, patient lives alone with his who is also elderly and frail Metabolic encephalopathy 2/2 UTI + progressive dementia - CThead: No acute findings, atrophy and microvascular ischemic changes - CXR: No acute process - EKG: A. fib with normal rate, QTC 446 Hemoglobin 13.2 Hemodynamically stable, afebrile UA infected appearing. UC pending - Continue Rocephin, will tailor abx as culture results become available - PT/OT/Case Management consulted for placement (2) Atrial fibrillation with slow ventricular response: Plan: Avoid negative chronotropic's given bradycardic response Continue warfarin INR subtherapeutic at 1.3, increase Warfarin to 4mg daily - Repeat INR in AM (3) Dementia: Plan: Delirium precautions Continue donepezil Continue Lexapro (4) Ataxia: Plan: - PT/OT (5) Hyperlipidemia: Plan: Continue atorvastatin (6) Hypertension: Plan: - Well controlled w/o meds Plan As above. Await PT/OT eval. CM on consult to assist in dc planning. Tailor abx as urine culture results become available. Plan d/w Dr. Queen. Admission and Anticipated Discharge Date Admission Date: July 16, 2022 Subjective Patient seen on daily rounds this morning. He is oriented only to self. He is unable to articulate what brought him to the hospital. Apparently, he was brought in accompanied by due to increased confusion and agitation. Does have known dementia. UA suggestive of infection and is currently on abx for such. Denies cp, dyspnea. Review of Systems Review of Systems: Accurate ROS unobtainable due to dementia Physical Exam Physical Exam: GENERAL: 87 yo Well-developed, well-nourished elderly WM. NAD. LUNGS: Clear to auscultation bilaterally. No W/R/R. CARDIOVASCULAR: S1 S2 irregular rhythm, No g/r. No JVD. ABDOMEN: Soft, non-tender and non-distended. BS normoactive x 4 quad. EXTREMITIES: No edema. Non-tender. Peripheral pulses +2/4. NEUROLOGIC: A&O x1 PSYCHIATRIC: Cooperative. Appropriate mood and affect. SKIN: Warm, dry, intact. No rashes or lesions. Results & Data Results & Data ([facility]) Vital Signs (Past 12 Hours) Vital Signs Temp Pulse Resp BP Pulse Ox O2 Del Method 07/17/22 08:06 36.5 C 78 16 130/82 94 Room Air Laboratory Results 07/17/22 06:23 07/17/22 06:23 PG Care Time/CCT Total # of Minutes Spent Total Time Spent with Patient: Total time spent is greater than 50% in coordination of care (as documented) at patient's floor/unit and/or counseling patient: Coding Level of Care Code 78145 Subseq Obs Care Lvl 2 Diagnoses UTI (urinary tract infection) N39.0 Atrial fibrillation with slow ventricular response I48.91 Dementia F03.90 Ataxia R27.0 Hyperlipidemia E78.5 Hypertension I10
[2022-07-17] MEDS ORDERED: WARFARIN SOD 4 MG TAB PO SCH ×2 (16:00)
[2022-07-17] MEDS: cefTRIAXone SODIUM 2,000 MG in DEXTROSE 5% 50 ML IV SCH (19:19)
[2022-07-17] MEDS: ATORVASTATIN 40 MG TAB PO SCH (20:00)
[2022-07-17] MEDS: DONEPEZIL HCL 10 MG TAB PO SCH (20:00)
[2022-07-17] MEDS: TAMSULOSIN HCL 0.4 MG CAP PO SCH (20:01)
[2022-07-18 07:04] LABS: INR 1.4 (0.9-1.1); Prothrombin Time 14.6 Seconds (9.0-12.0)
[2022-07-18] MEDS: ESCITALOPRAM OXALATE 10 MG TAB PO SCH (07:56)
[2022-07-18] MEDS: MEMANTINE HCL 10 MG TAB PO SCH ×2 (07:56→20:27)
--- NOTE | 2022-07-18 15:46 | Hospitalist Progress Note ---
Date of Service July 18, 2022 Assessment & Plan (1) UTI (urinary tract infection): Plan: Metabolic encephalopathy 2/2 UTI + progressive dementia - CThead: No acute findings, atrophy and microvascular ischemic changes - CXR: No acute process - EKG: A. fib with normal rate, QTC 446 Hemoglobin 13.2 Hemodynamically stable, afebrile UA infected appearing. UC w/ pin point growth, reincubating - Continue Rocephin, will tailor abx as culture results become available - PT/OT/Case Management consulted for dc planning * therapy recommending snf * family feels that pt will require care home placement and want to initiate this process but are comfortable taking him home with home health and hired caregivers (2) Atrial fibrillation with slow ventricular response: Plan: Avoid negative chronotropic's given bradycardic response Continue warfarin INR subtherapeutic at 1.3, increase Warfarin to 4mg daily - Repeat INR this am 1.4, will give a dose of 10mg of Coumadin tonight and repeat INR in AM - Resume daily 4mg Coumadin dose on 07/19 (3) Dementia: Plan: Delirium precautions Continue donepezil Continue Lexapro (4) Ataxia: Plan: - PT/OT --> recommending home w/ HH vs SNF (5) Hyperlipidemia: Plan: Continue atorvastatin (6) Hypertension: Plan: - Well controlled w/o meds Plan As above. Family would like to take him home with home health and will contact a list of private caregivers to assist them while they pursue ferry terminal agent placement options. Pt would be a perfect candidate for a PC facility with a memory support unit. Talked with and daughter, phone was also on speaker phone, and spoke with them along with case management this afternoon. Everyone in agreement with plan. Plan for dc home tomorrow with services. D/w Dr. Gorman. Admission and Anticipated Discharge Date Admission Date: July 17, 2022 Subjective Patient seen on rounds this morning. He is resting comfortably in bed, remains pleasantly confused and is without complaints. No reports of agitation or combativeness. Review of Systems Review of Systems: Reliable ROS unobtainable due to patient's dementia Physical Exam Physical Exam: GENERAL: 87 yo Well-developed, well-nourished elderly WM. NAD. LUNGS: Clear to auscultation bilaterally. CARDIOVASCULAR: S1 S2 ABDOMEN: Soft, non-tender and non-distended. BS normoactive x 4 quad. EXTREMITIES: No edema. Non-tender. Peripheral pulses +2/4. NEUROLOGIC: A&O x1 PSYCHIATRIC: Cooperative. Appropriate mood and affect. SKIN: Warm, dry, intact. No rashes or lesions. Results & Data Results & Data ([facility]) Vital Signs (Past 12 Hours) Vital Signs Temp Resp BP Pulse Ox 07/18/22 07:50 36.9 C 18 120/74 94 PG Care Time/CCT Total # of Minutes Spent Total Time Spent with Patient: Total time spent is greater than 50% in coordination of care (as documented) at patient's floor/unit and/or counseling patient: Coding Level of Care Code 52556 Subseq Hosp Care Lvl 2 Diagnoses UTI (urinary tract infection) N39.0 Atrial fibrillation with slow ventricular response I48.91 Dementia F03.90 Ataxia R27.0 Hyperlipidemia E78.5 Hypertension I10
[2022-07-18] MEDS ORDERED: WARFARIN SOD 10 MG TAB PO ONE (16:00)
[2022-07-18] MEDS: cefTRIAXone SODIUM 2,000 MG in DEXTROSE 5% 50 ML IV SCH (18:41)
[2022-07-18] MEDS: DONEPEZIL HCL 10 MG TAB PO SCH (20:27)
[2022-07-18] MEDS: TAMSULOSIN HCL 0.4 MG CAP PO SCH (20:27)
[2022-07-18] MEDS: ATORVASTATIN 40 MG TAB PO SCH (20:27)
[2022-07-19 08:13] LABS: INR 1.7 (0.9-1.1); Prothrombin Time 17.2 Seconds (9.0-12.0)
[2022-07-19] MEDS: ESCITALOPRAM OXALATE 10 MG TAB PO SCH (09:18)
[2022-07-19] MEDS: CIPROFLOXACIN 500 MG TAB PO SCH ×2 (09:19→20:06)
[2022-07-19] MEDS: MEMANTINE HCL 10 MG TAB PO SCH ×2 (09:19→20:06)
--- NOTE | 2022-07-19 12:56 | Discharge Summary ---
Date of Service July 19, 2022 Admission HPI Per Admitting Provider Selvin is an 87-year-old male with a past medical history of A. fib with bradycardia, ataxia, CAD, BPH with LUTS, hyperlipidemia, hypertension, chronic venous insufficiency, and dementia who has had increased agitation in the last several days on a baseline of underlying dementia. With polyuria History is limited by severe dementia. No elevated PVR. Patient history is severely limited by dementia. With polyuria in the ER. Seen with family. Has dementia. Increasingly combative and verbally threatening at home. Agitated for several days, live alone with his who is also elderly with osteoporosis. Denies pain at bedside. No fevers/chills/sweats. No chest pain or chest pressure. NO polyuria at home, but having to pee very often in ER and notes has had increased urinary incontinence. notes that he has progressed to the point where she cannot safely care for him, and does not feel he is safe to be home. Would like placement into discussed with case management. Medical History: Reviewed Medications: Reviewed Surgical History: Reviewed Allergies: Reviewed Social History: Reviewed Code Status: DNR/DNI. Discussed with family, would not want heroic measures Principal Diagnosis 1. Metabolic encephalopathy secondary to acute UTI 2. Advanced dementia Discharge Exam GENERAL: 87 yo Well-developed, well-nourished elderly WM. NAD. LUNGS: Clear to auscultation bilaterally. CARDIOVASCULAR: S1 S2 irregular with CVR ABDOMEN: Soft, non-tender and non-distended. BS normoactive x 4 quad. EXTREMITIES: No edema. Non-tender. Peripheral pulses +2/4. NEUROLOGIC: A&O x1 PSYCHIATRIC: Cooperative. Appropriate mood and affect. SKIN: Warm, dry, intact. No rashes or lesions. Discharge Data Allergies Allergy/AdvReac Type Severity Reaction Status Date / Time Penicillins Allergy Mild UNKNOWN Verified 07/13/22 11:47 Sulfa (Sulfonamide Allergy Unknown UNKNOWN Verified 07/13/22 11:47 Antibiotics) thimerosal Allergy Unknown SWELLING Verified 07/13/22 11:47 AT SITE OF APPLICATION Consultations 07/16/22 18:31 ED Decision to Admit Stat Ordered Studies Chest X-Ray 07/16/22 17:00 XR chest 1V portable HISTORY: weakness COMPARISON: Chest 05/13/2021. FINDINGS: No pneumothorax. No pleural effusions. The heart remains mildly enlarged. There is mild chronic interstitial thickening, unchanged. No new focal lung consolidations to suggest a pneumonia. No evidence for pulmonary edema. Degenerative changes again noted within the shoulders. There is a electronic device seen within the left upper chest. IMPRESSION: Stable mild cardiomegaly. Otherwise, no acute process within the chest. ACT 112: Negative or not required by law. Electronically signed by: Cade Pak M.D. 07/16/2022 5:[address] 07/16/22 17:[address] DOSE: 614.27 mGy.cm HISTORY: Altered mental status. TECHNIQUE: Multiaxial CT images of the head were performed without the use of intravenous contrast. Automated exposure control was utilized for this study. A dose lowering technique was utilized adhering to the principles of ALARA. Comparison: Head CT 04/30/2022. Findings: The paranasal sinuses and mastoid air cells are clear. The calvarium and skull base are intact. There is no mass, hematoma, midline shift, acute infarct. White matter hypodensity is nonspecific but suggestive of microvascular ischemic change. The ventricles and sulci demonstrate mild age-related involutional changes. Impression: No acute intracranial abnormality. Atrophy and microvascular ischemic changes. ACT 112: Negative or not required by law. Electronically signed by: Cade Pak M.D. 07/16/2022 5:46 PM Hospital Course (1) UTI (urinary tract infection): Metabolic encephalopathy 2/2 UTI + progressive dementia - CThead: No acute findings, atrophy and microvascular ischemic changes - CXR: No acute process - EKG: A. fib with normal rate, QTC 446 Hemoglobin 13.2 Hemodynamically stable, afebrile UA infected appearing. UCx with growth of pseudomonas and staph - staph suspected to be coagulase neg staph - Initially placed on Rocephin which was stopped 07/19 d/t culture results, started Cipro 500mg BID, first dose given 11 AM - PT/OT/Case Management consulted for dc planning * therapy recommending snf v home w/ home health * family feels that pt will require watermaster placement and want to initiate this process but are comfortable taking him home with home health and hired caregivers in the interim (2) Atrial fibrillation with slow ventricular response: Avoid negative chronotropic's given bradycardic response Continue warfarin INR subtherapeutic at 1.3, increase Warfarin to 4mg daily - Repeat INR this am 1.4, will give a dose of 10mg of Coumadin tonight and repeat INR this AM 1.7 - Since pt requires FQ upon d/c for UTI, will plan as follows: Resume 2mg dose on 07/19, hold 4mg dose on 07/20, and resume regular dosing on 07/21. Repeat INR as outpatient on 07/[address] Marie (3) Dementia: Delirium precautions Continue donepezil Continue Lexapro (4) Ataxia: - PT/OT --> recommending home w/ HH vs SNF (as above) (5) Hyperlipidemia: Continue atorvastatin (6) Hypertension: - Well controlled w/o meds (7) Current use of skilled nursing anticoagulation: Plan Family would like to take him home with home health and will contact a list of private caregivers to assist them while they pursue watermaster placement options. Pt would be a perfect candidate for a PC facility with a memory support unit. Talked with and daughter, phone was also on speaker phone, and spoke with them in conjunction with binder caser on 07/18. Everyone in agreement with plan. He is medically and hemodynamically stable for dc home with HH and family support today. Above plan of care d/w Dr. Gorman who has also seen and evaluated this patient prior to dc and agrees with aforementioned. Total Time Total Time Spent Total Time Spent (In Minutes): >30 minutes Discharge Plan Discharge Items Patient Disposition: Home - Home Health Services Reason For Visit: uti, dementia, placement needs Discharge Diagnosis: urinary tract infection progressive dementia Condition on Discharge: Good Activity: Resume your previous activity Non-emergency contact: Primary Care Provider Call non-emergency contact if: you have any medication questions Follow-up/Referrals: Evens Giron MD [Primary Care Provider] - 07/25/22 11:00 am Diet: Regular Ambulatory Orders: Prothrombin Time INR (Routine) Timeframe: [id number] Location: Determined by Patient Ordered By: Noemi Borrego Addtl Attending Provider Instructions: You were hospitalized due to altered mental status manifested as aggression and agitated behavior which was felt to be secondary to a urinary tract infection. You were started on antibiotics and provided some gentle IV fluid hydration. You were found to have 2 different types of bacteria in your urine. Based on the types of bacteria, you have been placed on an antibiotic called Cipro 500mg twice a day for ten days. Options for watermaster care placement were discussed, and your family has elected to bring you home. Home health services will be arranged, you will have a visiting nurse as well as physical and occupational therapy. A list of watermaster care facilities with memory support units as well as a list of private caregiver services has been provided to you. Regarding your Coumadin (Warfarin), you can take your 2mg dose today July 19 as scheduled. Please HOLD your MondayJuly 20 dose of 4mg. You can resume your regular dosing on July 21. We will order a follow up INR level to be drawn by home health nurse on MondayJuly 22. Results will be forwarded to Dr. Marie in the Coumadin clinic. They will contact with you further instructions. It is recommended that you follow up with your primary care provider within 1 week of discharge from the hospital. If you have any questions/concerns after you leave the hospital that cannot be answered by your primary care provider, feel free to contact the nonemergency number listed on your discharge paperwork. In the event of a medical emergency, call 911. Pending Studies at Discharge: Yes Studies:: urine culture - staph species is pending final read Blood cultures are pending Stand-Alone Forms: My [employer], Smoking Cessation Medications and DC Order Prescriptions: New ciprofloxacin HCl 500 mg Tablet 500 mg PO BID Qty: 19 0RF Continued Men's 50 Plus Multivitamin 400-20-370 mcg tablet 1 tab PO QAM cholecalciferol (vitamin D3) [Vitamin D3] 1,000 unit (25 mcg) tablet 1,000 units PO QAM Qty: 0 alendronate 70 mg tablet 70 mg PO WK Qty: 12 3RF Rx Instructions: MONDAY escitalopram oxalate [Lexapro] 10 mg tablet 10 mg PO QAM Qty: 90 3RF warfarin 4 mg tablet See Rx Instructions PO UD Qty: 90 1RF Rx Instructions: 2mg q //, 4mg x 4 days per [facility] PO use as directed; Prilosec OTC 20 mg tablet,delayed release (DR/EC) 20 mg PO QAM Qty: 90 3RF donepezil 10 mg tablet 10 mg PO HS Qty: 90 3RF ascorbic acid (vitamin C) 500 mg capsule 500 mg PO QPM calcium carbonate [Calcium 600] 600 mg calcium (1,500 mg) tablet 600 mg PO AMPM memantine [Namenda] 10 mg tablet 10 mg PO BID 90 Days Qty: 180 3RF tamsulosin 0.4 mg capsule 0.4 mg PO HS atorvastatin [Lipitor] 40 mg tablet 40 mg PO HS Admission Data Admit Date/Time: 07/17/22 12:41 Attending Provider: Mata Ramires Admit Provider: Evens Vicente Primary Care Provider: Evens Giron Other Providers: Evens Vicente ; [facility] ; [place] ; [facility] ; [facility] ; [facility] ; Mata Ramires Supervising Physician Co-Signing Physician Notes I personally saw and examined the patient. I verified all rodriguez points and agree with Noemi Borrego PA-C with the following exceptions and/or addition Coding Level of Care Code D/C DAY MANAGEMENT >30 MINS Diagnoses UTI (urinary tract infection) N39.0 Atrial fibrillation with slow ventricular response I48.91 Dementia F03.90 Ataxia R27.0 Hyperlipidemia E78.5 Hypertension I10 Current use of skilled nursing anticoagulation Z79.01
[2022-07-19] MEDS ORDERED: WARFARIN SOD 2 MG TAB PO SCH (16:45)
--- NOTE | 2022-07-19 16:57 | Hospitalist Progress Note ---
Date of Service July 19, 2022 Assessment & Plan (1) UTI (urinary tract infection): Plan: Metabolic encephalopathy 2/2 UTI + progressive dementia - CThead: No acute findings, atrophy and microvascular ischemic changes - CXR: No acute process - EKG: A. fib with normal rate, QTC 446 Hemoglobin 13.2 Hemodynamically stable, afebrile UA infected appearing. UCx with growth of pseudomonas and staph - staph suspected to be coagulase neg staph - Initially placed on Rocephin which was stopped 07/19 d/t culture results, started Cipro 500mg BID, first dose given 07/19 AM - PT/OT/Case Management consulted for dc planning * therapy recommending snf v home w/ home health with family support (2) Atrial fibrillation with slow ventricular response: Plan: Avoid negative chronotropic's given bradycardic response Continue warfarin INR subtherapeutic at 1.3, increase Warfarin to 4mg daily - Repeat INR this am 1.4, will give a dose of 10mg of Coumadin tonight and repeat INR this AM 1.7 - Since pt requires FQ upon d/c for UTI, will plan as follows: Resume 2mg dose on 07/19, hold 4mg dose on 07/20, and resume regular dosing on 07/21. Repeat INR as outpatient on 07/[address] Marie (3) Dementia: Plan: Delirium precautions Continue donepezil Continue Lexapro (4) Ataxia: Plan: - PT/OT --> recommending home w/ HH vs SNF (as above) (5) Hyperlipidemia: Plan: Continue atorvastatin (6) Hypertension: Plan: - Well controlled w/o meds Plan Family initially verbalized wishes to take him home with home health and will contact a list of private caregivers to assist them while they pursue penitentiary placement options. Lengthy d/w pt's , daughter, and son in conjunction with manager editorial on 07/18. Everyone was on board with plan. When arrived today (07/19) of which plan was to dc home with HH and hired caregivers, there was concern from the , RN caring for patient, and several family members regarding her ability to care for him if he returns home. After much deliberation back and forth, it was decided that the felt too insecure about her ability to care for him and it was decided to forgo discharge. Pt will remain in house until appropriate dc option has been made. I did mention hospice as a possible option also, they will discuss this more as a family and determine if they would like to go that route. They are concern with his decline even since being admitted to the hospital and given his progressive dementia, he would qualify for hospice services. This could also be initiated once he arrives at a SNF. Given his functional decline and lack of behavioral disturbance, I do not think that he requires a locked memory support unit. retail district manager was present for this conversation and will initiate sending referrals with permission of his family to SNFs within a 1 hour radius on 07/20. D/c has been cancelled and will remain in house until dc plan is finalized. Above plan has been d/w Dr. Gorman. Admission and Anticipated Discharge Date Admission Date: July 17, 2022 Subjective Patient seen on rounds this morning. He is resting comfortably in bed, remains pleasantly confused and is without complaints. No reports of agitation or combativeness. Review of Systems Review of Systems: Reliable ROS unobtainable due to patient's dementia Physical Exam Physical Exam: GENERAL: 87 yo Well-developed, well-nourished elderly WM. NAD. LUNGS: Clear to auscultation bilaterally. CARDIOVASCULAR: S1 S2 irregular with CVR ABDOMEN: Soft, non-tender and non-distended. BS normoactive x 4 quad. EXTREMITIES: No edema. Non-tender. Peripheral pulses +2/4. NEUROLOGIC: A&O x1 PSYCHIATRIC: Cooperative. Appropriate mood and affect. SKIN: Warm, dry, intact. No rashes or lesions. Results & Data Results & Data ([facility]) Vital Signs (Past 12 Hours) Vital Signs Temp Pulse Resp BP BP Pulse Ox O2 Del Method 07/19/22 15:40 36.8 C 88 16 141/88 H 94 Room Air 07/19/22 07:31 36.5 C 63 16 140/86 99 Room Air Laboratory Results INR 1.7 PG Care Time/CCT Total # of Minutes Spent Total Time Spent with Patient: Total time spent is greater than 50% in coordination of care (as documented) at patient's floor/unit and/or counseling patient: Coding Level of Care Code 46188 Subseq Hosp Care Lvl 2 Diagnoses UTI (urinary tract infection) N39.0 Atrial fibrillation with slow ventricular response I48.91 Dementia F03.90 Ataxia R27.0 Hyperlipidemia E78.5 Hypertension I10
[2022-07-19] MEDS: DONEPEZIL HCL 10 MG TAB PO SCH (20:06)
[2022-07-19] MEDS: ATORVASTATIN 40 MG TAB PO SCH (20:06)
[2022-07-19] MEDS: TAMSULOSIN HCL 0.4 MG CAP PO SCH (20:06)
[2022-07-19] MEDS: MELATONIN 3 MG TAB PO PRN (20:06)
[2022-07-19] MEDS ORDERED: OLANZapine 10 MG/2.1 ML SDV IM STA (21:47)
--- NOTE | 2022-07-19 22:53 | Communication Note ---
Date of Service: July 19, 2022 Earlier in the evening the patient was agitated and not redirectable and thus was given Zyprexa 2.5mg IM. I was informed ~30 minutes after administration that the patient was fast asleep and occasionally with temporary apnea and associated hypoxia to high 80s. Slightly improved with elevated of head of bed but still occurring. On exam the patient is sleeping and snoring, with occasional brief periods of apnea lasting several seconds. Lungs with transmitted upper airway sounds but no crackles/wheezes. Patient is arousable to noxious stimuli. Will start 2L/min nasal cannula. Maintain elevated HOB. Will plan on initiating BiPAP if apnea continues and/or worsens.
[2022-07-20 10:24] LABS: INR 2.3 (0.9-1.1)
--- NOTE | 2022-07-20 10:26 | Hospitalist Progress Note ---
Date of Service July 20, 2022 Assessment & Plan (1) UTI (urinary tract infection): Plan: Metabolic encephalopathy 2/2 UTI + progressive dementia - CThead: No acute findings, atrophy and microvascular ischemic changes - CXR: No acute process - EKG: A. fib with normal rate, QTC 446 Hemoglobin 13.2 Hemodynamically stable, afebrile UA infected appearing. UCx with growth of pseudomonas and coagulase neg staph - Initially placed on Rocephin which was stopped 07/19 d/t culture results, started Cipro 500mg BID on 07/19 - PT/OT/Case Management consulted for dc planning * therapy recommending snf v home w/ home health with family support - Due to lethargy this AM after receiving Zyprexa 07/19, will adjust abx to Cefepime 2g IV q8h to cover both pseudomonas and staph adequately since he cannot safely swallow pills (2) Atrial fibrillation with slow ventricular response: Plan: Avoid negative chronotropic's given bradycardic response Continue warfarin INR subtherapeutic at 1.3, increase Warfarin to 4mg daily - Repeat INR this am 1.4, given a dose of 10mg of Coumadin on 07/18 and repeat INR 07/19 was 1.7 - Repeat INR this AM 2.3, hold Coumadin as previously planned (07/20) (3) Dementia: Plan: Delirium precautions Continue donepezil Continue Lexapro - Slightly agitated last evening, given Zyprexa now quite somnolent - Avoid further antipsychotics, would consider low dose Seroquel if any further agitation (4) Ataxia: Plan: - PT/OT --> recommending home w/ HH vs SNF (as above) (5) Hyperlipidemia: Plan: Continue atorvastatin (6) Hypertension: Plan: - Well controlled w/o meds Plan Family initially verbalized wishes to take him home with home health and will contact a list of private caregivers to assist them while they pursue long term care administrator placement options. Lengthy d/w pt's , daughter, and son in conjunction with machining manager on 07/18. Everyone was on board with plan. When arrived today (07/19) of which plan was to dc home with HH and hired caregivers, there was concern from the , RN caring for patient, and several family members regarding her ability to care for him if he returns home. After much deliberation back and forth, it was decided that the felt too insecure about her ability to care for him and it was decided to forgo discharge. Pt will remain in house until appropriate dc option has been made. I did mention hospice as a possible option also, they will discuss this more as a family and determine if they would like to go that route. They are concerned with his decline even since being admitted to the hospital and given his progressive dementia, he would certainly qualify for hospice services. This could also be initiated once he arrives at a SNF. Given his functional decline and lack of behavioral disturbance, I do not think that he requires a locked memory support unit. project engineering manager was present for this conversation and will initiate sending referrals with permission of his family to SNFs within a 1 hour radius on 07/20. D/c has been cancelled and will remain in house until dc plan is finalized. Above plan has been d/w Dr. Ramires. Admission and Anticipated Discharge Date Admission Date: July 17, 2022 Subjective Patient seen on rounds this morning. Documented communication note overnight by resident indicates that patient was agitated last evening and they were unable to redirect him, subsequently he was medicated with Zyprexa 2.5mg IM x1 following which he was sound asleep with periods of apnea. He was placed on 2L of supplemental O2 overnight. This morning, pt remains sedated and difficult to wake. Review of Systems Review of Systems: Reliable ROS unobtainable due to patient's dementia/sedation Physical Exam Physical Exam: GENERAL: 87 yo Well-developed, well-nourished elderly WM. NAD. LUNGS: Clear to auscultation bilaterally. CARDIOVASCULAR: S1 S2 irregular with CVR ABDOMEN: Soft, non-tender and non-distended. BS normoactive x 4 quad. EXTREMITIES: No edema. Non-tender. Peripheral pulses +2/4. NEUROLOGIC: A&O x1 PSYCHIATRIC: Cooperative. Appropriate mood and affect. SKIN: Warm, dry, intact. No rashes or lesions. Results & Data Results & Data ([facility]) Vital Signs (Past 12 Hours) Vital Signs Temp Pulse Pulse Resp BP Pulse Ox O2 Del Method 07/20/22 10:17 36.7 C 62 18 113/66 95 Nasal Cannula 07/20/22 09:57 Nasal Cannula 07/20/22 00:13 59 L 24 99 O2 Flow Rate FiO2 07/20/22 10:17 2 07/20/22 09:57 2 07/20/22 00:13 30 PG Care Time/CCT Total # of Minutes Spent Total Time Spent with Patient: Total time spent is greater than 50% in coordination of care (as documented) at patient's floor/unit and/or counseling patient: Coding Level of Care Code 97122 Subseq Hosp Care Lvl 2 Diagnoses UTI (urinary tract infection) N39.0 Atrial fibrillation with slow ventricular response I48.91 Dementia F03.90 Ataxia R27.0 Hyperlipidemia E78.5 Hypertension I10
[2022-07-20] MEDS: CEFEPIME 2,000 MG in SYRINGE 0 ML IV SCH ×2 (11:16→20:37)
[2022-07-20] MEDS: MEMANTINE HCL 10 MG TAB PO SCH ×2 (17:16→20:36)
[2022-07-20] MEDS: ESCITALOPRAM OXALATE 10 MG TAB PO SCH (17:16)
[2022-07-20] MEDS: SODIUM CHLORIDE 0.9% 1000ML 1,000 ML IV SCH (17:55)
[2022-07-20] MEDS: TAMSULOSIN HCL 0.4 MG CAP PO SCH (20:36)
[2022-07-20] MEDS: ATORVASTATIN 40 MG TAB PO SCH (20:36)
[2022-07-20] MEDS: DONEPEZIL HCL 10 MG TAB PO SCH (20:36)
[2022-07-21] MEDS: SODIUM CHLORIDE 0.9% 1000ML 1,000 ML IV SCH (05:33)
[2022-07-21 07:19] LABS: INR 2.8 (0.9-1.1); Prothrombin Time 28.2 Seconds (9.0-12.0)
[2022-07-21 07:26] LABS: Creatinine Clr Calc Pharmacy 49.3 ml/min; Est GFR (African American) 90.8 ml/min; Est GFR (Non-African American) 78.3 ml/min
--- NOTE | 2022-07-21 08:11 | Hospitalist Progress Note ---
Date of Service July 21, 2022 Assessment & Plan (1) UTI (urinary tract infection): Plan: Metabolic encephalopathy 2/2 UTI + progressive dementia CT head w/o acute CVA. Noted atrophy and microvascular ischemic changes CXR w/o acute process EKG w/ afib w/ PVCs UA appeared infected. Urine culture with pseudomonas, coag negative staph --> Had been on Rocephin on admission, however would not cover for pseudomonas, and was switched to Cipro 500mg BID on 07/19 which was then switch to IV Cefepime 2gm IV Q8H given increased lethargy on 07/20 after getting Zyprexa overnight 07/19 Speech saw given issues w/ PO intake/pudding this morning -- no issues w/ chocolate ice cream. continue current diet Had been placed on IVF due to poor PO intake from lethargy, improved in PO intake today. D/c IVF after current bag PT/OT consulted -- SNF recommended vs home w/ home health and family support CM following -- daughter Rose lives in [place] and brother in [place]. Would like referrals [facility] -- sent to [place], [place], and [facility] today. Already on waiting lists for others -- see CM nots Oxygen Use -- currently on 2L w/ SpO2 98% and more alert today --> had dropped to 75-88% on RA after the zyprexa 07/20, periods of apnea/trouble protecting airway and HOB elevated/supplemental O2 placed) Had been placed on BiPAP for 3 hours 07/19-07/20 and initially titrated to 3L NC Asked RN to titrate O2 to maintain sats, check CXR (2) Atrial fibrillation with slow ventricular response: Plan: Avoid negative chronotropic's given bradycardic response, rates in 50-60s On coumadin and follows with coag clinic -- most recent notes indicate warfarin 2mg T//, 4mg all other days had been subtherapeutic INR 1.4 beginning of the month, but questions as to compliance of medications at home and to get warfarin only coumadin box. Continue protein drink 3x/wk w/ MV Will also order nutritional supplements 07/21 INR subtherapeutic at 1.2 on admission and had increased warfarin to 4mg daily Continued to be subtherapeutic 1.4 on 07/18 and 10mg warfarin provided and INR 1.7 on 07/19 Repeat INR 2 INR then increased 2.3--> 2.8 (Coumadin HELD 07/20), likely from 10mg warfarin provided on 07/18 To get 2mg dose today as changed back to 2/4mg dosing schedule, however can expect some rises in INR w/ abx use Monitor labs/INR in AM-- can touch base with Dr Marie/AC clinic in AM for further recommendations/adjustments Given afib, keep K ~4, Mag ~2 K 3.9 on AM labs, will order 20meq PO. Add mag to labs, replacement if needed (3) Dementia: Plan: Continue home donepezil, lexapro TSH 1.553 on admission B12 wnl With acute encephalopathy now improved Given zyprexa evening 07/19, nothing last evening. Not agitated for me during encounter Would avoid further antipsychotics unless absolutely needed, but can consider seroquel 12.5mg HS if needed will place on empiric thiamine as well Delirium precautions Needing placement at d/c (4) Ataxia: Plan: PT/OT --> recommending home w/ HH vs SNF -- unable to accomodate at home (5) Hyperlipidemia: Plan: Continue atorvastatin (6) Hypertension: Plan: BP stable 112/73 Not on any BP medications Monitor Plan Family initially verbalized wishes to take him home with home health and will contact a list of private caregivers to assist them while they pursue buttermilk drier operator placement options. Lengthy d/w pt's , daughter, and son in conjunction with health club manager on 07/18. Everyone was on board with plan. When arrived today (07/19) of which plan was to dc home with HH and hired caregivers, there was concern from the , RN caring for patient, and several family members regarding her ability to care for him if he returns home. After much deliberation back and forth, it was decided that the felt too insecure about her ability to care for him and it was decided to forgo discharge. Pt will remain in house until appropriate dc option has been made. Mentioned hospice as a possible option also, they will discuss this more as a family and determine if they would like to go that route. They are concerned with his decline even since being admitted to the hospital and given his progressive dementia, he would certainly qualify for hospice services. This could also be initiated once he arrives at a SNF. Given his functional decline and lack of behavioral disturbance, I do not think that he requires a locked memory support unit. systems analysis manager was present for this conversation and will initiate sending referrals with permission of his family to SNFs within a 1 hour radius on 07/20. D/c has been cancelled and will remain in house until dc plan is finalized. CM following, additional referrals placed 07/21 continued inpatient stay Admission and Anticipated Discharge Date Admission Date: July 17, 2022 Supervising Physician Co-Signing Physician Notes PA Supervision Note: I did not personally see or examine the patient today, but I verified all rodriguez points of BILL Ross's assessment and plan with the following exceptions/additions: Cefepime not good coverage for Coag Neg Staph. UA not contaminated with epis so this could be a true pathogen. Did receive Cipro which has some decent (71%) susceptibility coverage as per our antibiogram so would recommend switching back to that for tomorrow. Subjective Eval prior to lunch, asked speech to see as RN reported having pills crushed with pudding but having pudding sit in his mouth like he didn't know what to do with it. Seen by speech, ate chocolate ice cream and reported he would like more of this. more alert today per nursing, no additional antipsychotics had to be given overnight. incontinent of bladder on abx for UTI, can switch back to PO tomorrow if continues w/ PO intake. Denies any fever/chills, chest pain, shortness of breath. On 2L NC w/ SpO2 98%. Asked RN to wean as tolerated. Will d/c fluids after current bag, minimal dehydration on exam. CM following, family to get back to her about additional rehabs for referrals. Of note, has external cardiac device present to left chest. Review of Systems Review of Systems: All systems reviewed & are unremarkable except as noted in HPI & below Physical Exam Physical Exam: General: frail elderly male resting comfortably in bed, NAD, alert only to person, states he is not sure what he is doing here HEENT: head normocephalic, mmm, trachea without deviation Resp: diminished in the bases, poor inspiratory effort at times, no wheezing/crackles, on 2L NC with SpO2 sat 98%, no respiratory distress CV: irregularly irregular (rates 50-60s), no m/r/g, no pitting edema, pulses palpable GI: +BS, nontender : no valero MSK/Neuro: no focal deficit, unable to follow commands at times due to dementia, no slurred speech/facial droop Psych: alert to person only, cooperative and calm during encounter Results & Data Results & Data ([facility]) Vital Signs (Past 12 Hours) Vital Signs Temp Pulse Resp BP Pulse Ox O2 Del Method O2 Flow Rate 07/21/22 07:06 36.6 C 55 L 19 112/73 98 Nasal Cannula 2.0 07/20/22 23:38 36.5 C 84 18 145/79 H 96 Nasal Cannula 2 Laboratory Results 07/21/22 07/21/22 07/21/22 Range/Units 08:25 08:25 08:25 WBC 5.66 (4.8-10.8) K/ul RBC 4.44 L (4.63-6.08) M/uL Hgb 14.3 (14.0-18.0) g/dl Hct 41.9 (40.1-51.0) % MCV 94.4 (80.0-100.0) fL MCH 32.2 (25.0-34.0) pg MCHC 34.1 (32.0-36.0) g/dL RDW Std Deviation 44.8 (36.4-46.3) fL RDW Coeff of Susan 13.1 (11.5-14.5) % Plt Count 145 (130-400) K/uL MPV 10.0 (9.4-12.4) fL PT (9.0-12.0) Seconds INR (0.9-1.1) Sodium 141 (136-145) mmol/L Potassium 3.9 (3.5-5.1) mmol/L Chloride 107 (98-107) mmol/L Carbon Dioxide 30 (21-32) mmol/L Anion Gap 4 (3-11) BUN 20 (6-23) mg/dl Creatinine 0.91 (0.6-1.4) mg/dl Est Cr Clr Drug Dosing 47.7 ml/min Est GFR ( Amer) 88.8 ml/min Est GFR (Non-Af Amer) 76.6 ml/min BUN/Creatinine Ratio 22.0 H (10-20) Glucose 82 (70-99(Fasting)) mg/dl Calcium 8.3 L (8.5-10.1) mg/dl Vitamin B12 440 (180-914) pg/ml 07/21/22 07/21/22 Range/Units 06:26 06:26 WBC (4.8-10.8) K/ul RBC (4.63-6.08) M/uL Hgb (14.0-18.0) g/dl Hct (40.1-51.0) % MCV (80.0-100.0) fL MCH (25.0-34.0) pg MCHC (32.0-36.0) g/dL RDW Std Deviation (36.4-46.3) fL RDW Coeff of Susan (11.5-14.5) % Plt Count (130-400) K/uL MPV (9.4-12.4) fL PT 28.2 H (9.0-12.0) Seconds INR 2.8 H (0.9-1.1) Sodium (136-145) mmol/L Potassium (3.5-5.1) mmol/L Chloride (98-107) mmol/L Carbon Dioxide (21-32) mmol/L Anion Gap (3-11) BUN (6-23) mg/dl Creatinine 0.88 (0.6-1.4) mg/dl Est Cr Clr Drug Dosing 49.3 ml/min Est GFR ( Amer) 90.8 ml/min Est GFR (Non-Af Amer) 78.3 ml/min BUN/Creatinine Ratio (10-20) Glucose (70-99(Fasting)) mg/dl Calcium (8.5-10.1) mg/dl Vitamin B12 (180-914) pg/ml PG Care Time/CCT Total # of Minutes Spent Total Time Spent with Patient: Total time spent is greater than 50% in coordination of care (as documented) at patient's floor/unit and/or counseling patient: Coding Level of Care Code 64572 Subseq Hosp Care Lvl 3 Diagnoses UTI (urinary tract infection) N39.0 Atrial fibrillation with slow ventricular response I48.91 Dementia F03.90 Ataxia R27.0 Hyperlipidemia E78.5 Hypertension I10
[2022-07-21 08:39] LABS: Hematocrit (blood only) 41.9 % (40.1-51.0); Hemoglobin 14.3 g/dl (14.0-18.0); Mean Corpuscular Hemoglobin 32.2 pg (25.0-34.0); Mean Corpuscular Hgb Conc 34.1 g/dL (32.0-36.0); Mean Corpuscular Volume 94.4 fL (80.0-100.0); Platelet Count 145 K/uL (130-400); RDW Coefficient of Variation 13.1 % (11.5-14.5); RDW Standard Deviation 44.8 fL (36.4-46.3); Red Blood Count 4.44 M/uL (4.63-6.08); White Blood Count 5.66 K/ul (4.8-10.8)
[2022-07-21] MEDS: MEMANTINE HCL 10 MG TAB PO SCH ×2 (08:44→20:33)
[2022-07-21] MEDS: ESCITALOPRAM OXALATE 10 MG TAB PO SCH (08:44)
[2022-07-21 09:03] LABS: Calcium 8.3 mg/dl (8.5-10.1); Creatinine Clr Calc Pharmacy 47.7 ml/min; Est GFR (African American) 88.8 ml/min; Est GFR (Non-African American) 76.6 ml/min; Potassium 3.9 mmol/L (3.5-5.1)
[2022-07-21] MEDS: CEFEPIME 2,000 MG in SYRINGE 0 ML IV SCH ×2 (11:06→23:19)
[2022-07-21] MEDS ORDERED: POTASSIUM CHLORIDE 20 MEQ/15 ML UDC PO STA (13:28)
[2022-07-21] MEDS: THIAMINE HCL 200 MG in SODIUM CHLORIDE 0.9% 50 ML IV SCH (14:34)
[2022-07-21] MEDS: WARFARIN SOD 2 MG TAB PO SCH (15:50)
[2022-07-21] MEDS: DOCUSATE SODIUM/SENNA 50/8.6MG TAB PO SCH (15:51)
--- NOTE | 2022-07-21 15:55 | XRay Report ---
SINGLE VIEW CHEST CLINICAL HISTORY: Volume overload. FINDINGS: An AP, portable, upright chest radiograph is compared to study dated 07/16/2022 and correla netta with chest CT dated 06/23/2018. The examination is degraded by portable technique and patient rot ation. An electronic device projects over the left mid chest. The heart is enlarged noting atheroscl erotic calcification of the thoracic aorta. There is mild pulmonary vascular congestion. Chronic inte rstitial thickening similar to previous. Airspace consolidation is seen at the right lung base. There are scattered calcified granulomas. No large pleural effusion or pneumothorax is identified. The ske letal structures are osteopenic. The bony thorax is grossly intact. Arthritic change is seen in the s houlders. IMPRESSION: 1. Cardiomegaly with mild pulmonary vascular congestion. 2. There is right basilar consolidation, typical for pneumonia/aspiration pneumonitis. Clinical corre lation will be required and radiographic follow-up to resolution is recommended. ACT 112: Negative or not required by law. Electronically signed by: Seferino Yost M.D. 07/21/2022 3:54 PM
[2022-07-21] MEDS: DONEPEZIL HCL 10 MG TAB PO SCH (20:33)
[2022-07-21] MEDS: TAMSULOSIN HCL 0.4 MG CAP PO SCH (20:33)
[2022-07-21] MEDS: ATORVASTATIN 40 MG TAB PO SCH (20:33)
[2022-07-22 07:31] LABS: INR 2.7 (0.9-1.1); Prothrombin Time 27.3 Seconds (9.0-12.0)
[2022-07-22 07:44] LABS: BUN Creatinine Ratio 26.9 (10-20); Calcium 8.1 mg/dl (8.5-10.1); Creatinine Clr Calc Pharmacy 46.7 ml/min; Est GFR (African American) 86.5 ml/min; Est GFR (Non-African American) 74.6 ml/min; Potassium 3.8 mmol/L (3.5-5.1)
[2022-07-22] MEDS ORDERED: CIPROFLOXACIN / D5W 400 MG/200 ML BAG IV SCH (08:00)
--- NOTE | 2022-07-22 08:02 | Hospitalist Progress Note ---
Date of Service July 22, 2022 Assessment & Plan (1) UTI (urinary tract infection): Plan: Metabolic encephalopathy 2/2 UTI + progressive dementia CT head w/o acute CVA. Noted atrophy and microvascular ischemic changes CXR w/o acute process EKG w/ afib w/ PVCs Urine culture with pseudomonas, coag negative staph * On ceftriaxone on admit (not covering pseudomonas) and switch to Cipro 07/19 which was then held and placed on Cefepime 2gm IV q8 for lethargy rather than using IV Cipro after zyprexa given overnight 07/19 for agitation/confusion * Given no epi on UA, CoNS not felt contaminent * Switch back to Cipro for 07/22 to complete course (complete after dosing 07/25) - does have some resistance w/ antibiogram but should cover. Otherwise, would need to add Doxy Increased appetite through afternoon 07/21 into evening, ate breakfast today after waking up, family assisting with lunch PT/OT consulted -- SNF recommended as not safe to return home and family not local. CM following and sent additional referrals. Medically stable for d/c when bed available if continued improvement on abx/PO intake stable Titrated to RA 07/21 as had been placed after zyprexa for periods of apnea. Did encounter patient while sleeping this morning initially, no distress or periods of apnea. No further zyprexa. If needed, would consider low dose seroquel 12.5mg HS prn (2) Atrial fibrillation with slow ventricular response: Plan: Avoid negative chronotropic's given bradycardic response, rates in 50-60s On coumadin and follows with coag clinic -- most recent notes indicate warfarin 2mg T//, 4mg all other days-- had been subtherapeutic INR 1.4 beginning of the month, but questions as to compliance of medications at home and to get warfarin only coumadin box. Continue protein drink 3x/wk w/ MV Will also order nutritional supplements 07/21 INR subtherapeutic at 1.2 on admission and had increased warfarin to 4mg daily Continued to be subtherapeutic 1.4 on 07/18 and 10mg warfarin provided and INR 1.7 on 07/19 INR then increased 2.3--> 2.8 (Coumadin HELD 07/20), likely from 10mg warfarin provided on 07/18 and given 2mg on 07/21 after discussion with [facility] pharmacist Given switching to Cipro for today, and INR 2.7, will hold 4mg dose for today and monitor INR in AM. Will need close monitoring while on abx (end date for c ipro 07/25) Given afib, keep K ~4, Mag ~2 K 3.8 on AM labs, will order 20meq PO. Mag 2.0 (3) Dementia: Plan: Continue home donepezil, lexapro TSH 1.553 on admission B12 wnl With acute encephalopathy, now improved Given zyprexa evening 07/19, NOTHING since then. Not agitated for me during encounter Would avoid further antipsychotics unless absolutely needed, but can consider seroquel 12.5mg HS if needed Delirium precautions -- Needing placement at d/c as above. CM following. Placed on empiric thiamine as well IV 200mg daily 07/21 -- did not check B1 level but would continue for now, continue 100mg at least 1-2x/daily at d/c (4) Ataxia: Plan: PT/OT --> recommending home w/ HH vs SNF -- unable to accomodate at home (5) Hyperlipidemia: Plan: Continue atorvastatin (6) Hypertension: Plan: BP stable 129/85 Not on any BP medications Monitor Plan Family initially verbalized wishes to take him home with home health and will contact a list of private caregivers to assist them while they pursue terminal operator placement options. Lengthy d/w pt's , daughter, and son in conjunction with assurance services manager health care on 07/18. Everyone was on board with plan. When arrived today (07/19) of which plan was to dc home with HH and hired caregivers, there was concern from the , RN caring for patient, and several family members regarding her ability to care for him if he returns home. After much deliberation back and forth, it was decided that the felt too insecure about her ability to care for him and it was decided to forgo discharge. Pt will remain in house until appropriate dc option has been made. Mentioned hospice as a possible option also, they will discuss this more as a family and determine if they would like to go that route. They are concerned with his decline even since being admitted to the hospital and given his progressive dementia, he would certainly qualify for hospice services. This could also be initiated once he arrives at a SNF. Given his functional decline and lack of behavioral d isturbance, I do not think that he requires a locked memory support unit. fleet operations manager was present for this conversation and will initiate sending referrals with permission of his family to SNFs within a 1 hour radius on 07/20. D/c has been cancelled and will remain in house until dc plan is finalized. CM following, additional referrals placed 07/21 --> [facility] likely have bed and able to accept patient earlier next week. [facility] is family's first choice as very close to home. Awaiting bed Admission and Anticipated Discharge Date Admission Date: July 17, 2022 Subjective Resting comfortably, no acute distress, awakens easily but stated resting condom cath draining clear yellow urine good appetite yesterday but hasn't eaten yet/taken pills at 930. instructed RN if not taken Cipro shortly let me know to order dose of IV. Awaiting placement. Remains stable on room air. This afternoon, checked with nursing, taken all pills this morning, good appetite and ate. Family visiting and assisting to feed lunch as well. Review of Systems Review of Systems: All systems reviewed & are unremarkable except as noted in HPI & below Physical Exam Physical Exam: General: frail elderly male resting comfortably in bed, NAD, alert only to person, states he is not sure what he is doing here HEENT: head normocephalic, mmm, trachea without deviation Resp: diminished in the bases, poor inspiratory effort at times, no wheezing/crackles, on room air, no respiratory distress CV: irregularly irregular (rates 50-60s), no m/r/g, no pitting edema, pulses palpable GI: +BS, nontender : no valero, condom cath w/ yellow urine draining MSK/Neuro: no focal deficit, unable to follow commands at times due to dementia, no slurred speech/facial droop Psych: alert to person only, cooperative and calm during encounter, sleepy Results & Data Results & Data ([facility]) Vital Signs (Past 12 Hours) Vital Signs Temp Pulse Resp BP Pulse Ox O2 Del Method 07/21/22 20:43 37.3 C 69 18 118/80 93 Room Air Laboratory Results 07/22/22 07/22/22 07/21/22 Range/Units 07:06 07:06 08:25 WBC (4.8-10.8) K/ul RBC (4.63-6.08) M/uL Hgb (14.0-18.0) g/dl Hct (40.1-51.0) % MCV (80.0-100.0) fL MCH (25.0-34.0) pg MCHC (32.0-36.0) g/dL RDW Std Deviation (36.4-46.3) fL RDW Coeff of Susan (11.5-14.5) % Plt Count (130-400) K/uL MPV (9.4-12.4) fL PT 27.3 H (9.0-12.0) Seconds INR 2.7 H (0.9-1.1) Sodium 139 (136-145) mmol/L Potassium 3.8 (3.5-5.1) mmol/L Chloride 108 H (98-107) mmol/L Carbon Dioxide 27 (21-32) mmol/L Anion Gap 4 (3-11) BUN 25 H (6-23) mg/dl Creatinine 0.93 (0.6-1.4) mg/dl Est Cr Clr Drug Dosing 46.7 ml/min Est GFR ( Amer) 86.5 ml/min Est GFR (Non-Af Amer) 74.6 ml/min BUN/Creatinine Ratio 26.9 H (10-20) Glucose 98 (70-99(Fasting)) mg/dl Calcium 8.1 L (8.5-10.1) mg/dl Magnesium 2.0 (1.7-2.4) mg/dl Vitamin B12 440 (180-914) pg/ml 07/21/22 07/21/22 07/21/22 Range/Units 08:25 08:25 06:30 WBC 5.66 (4.8-10.8) K/ul RBC 4.44 L (4.63-6.08) M/uL Hgb 14.3 (14.0-18.0) g/dl Hct 41.9 (40.1-51.0) % MCV 94.4 (80.0-100.0) fL MCH 32.2 (25.0-34.0) pg MCHC 34.1 (32.0-36.0) g/dL RDW Std Deviation 44.8 (36.4-46.3) fL RDW Coeff of Susan 13.1 (11.5-14.5) % Plt Count 145 (130-400) K/uL MPV 10.0 (9.4-12.4) fL PT (9.0-12.0) Seconds INR (0.9-1.1) Sodium 141 (136-145) mmol/L Potassium 3.9 (3.5-5.1) mmol/L Chloride 107 (98-107) mmol/L Carbon Dioxide 30 (21-32) mmol/L Anion Gap 4 (3-11) BUN 20 (6-23) mg/dl Creatinine 0.91 (0.6-1.4) mg/dl Est Cr Clr Drug Dosing 47.7 ml/min Est GFR ( Amer) 88.8 ml/min Est GFR (Non-Af Amer) 76.6 ml/min BUN/Creatinine Ratio 22.0 H (10-20) Glucose 82 (70-99(Fasting)) mg/dl Calcium 8.3 L (8.5-10.1) mg/dl Magnesium 1.9 (1.7-2.4) mg/dl Vitamin B12 (180-914) pg/ml PG Care Time/CCT Total # of Minutes Spent Total Time Spent with Patient: Total time spent is greater than 50% in coordination of care (as documented) at patient's floor/unit and/or counseling patient: Coding Level of Care Code 65813 Subseq Hosp Care Lvl 2 Diagnoses UTI (urinary tract infection) N39.0 Atrial fibrillation with slow ventricular response I48.91 Dementia F03.90 Ataxia R27.0 Hyperlipidemia E78.5 Hypertension I10
[2022-07-22] MEDS ORDERED: POTASSIUM CHLORIDE 20 MEQ/15 ML UDC PO STA (08:10)
[2022-07-22] MEDS: ESCITALOPRAM OXALATE 10 MG TAB PO SCH (10:27)
[2022-07-22] MEDS: MEMANTINE HCL 10 MG TAB PO SCH ×2 (10:27→19:25)
[2022-07-22] MEDS: DOCUSATE SODIUM/SENNA 50/8.6MG TAB PO SCH (10:27)
[2022-07-22] MEDS: THIAMINE HCL 200 MG in SODIUM CHLORIDE 0.9% 50 ML IV SCH (10:37)
[2022-07-22] MEDS: CIPROFLOXACIN 500 MG TAB PO SCH ×2 (11:29→19:26)
[2022-07-22] MEDS: DONEPEZIL HCL 10 MG TAB PO SCH (19:24)
[2022-07-22] MEDS: ATORVASTATIN 40 MG TAB PO SCH (19:24)
[2022-07-22] MEDS: MELATONIN 3 MG TAB PO PRN (19:24)
[2022-07-22] MEDS: TAMSULOSIN HCL 0.4 MG CAP PO SCH (19:25)
--- NOTE | 2022-07-23 08:13 | Hospitalist Progress Note ---
Date of Service July 23, 2022 Assessment & Plan (1) UTI (urinary tract infection): Plan: Metabolic encephalopathy 2/2 UTI + progressive dementia CT head w/o acute CVA. Noted atrophy and microvascular ischemic changes CXR w/o acute process EKG w/ afib w/ PVCs Urine culture with pseudomonas, coag negative staph * On ceftriaxone on admit (not covering pseudomonas) and switch to Cipro 07/19 which was then held and placed on Cefepime 2gm IV q8 for lethargy rather than using IV Cipro after zyprexa given overnight 07/19 for agitation/confusion * Given no epi on UA, CoNS not felt contaminent * Switch back to Cipro for 07/22 to complete course (complete after dosing 07/25) - does have some resistance w/ antibiogram but should cover. Otherwise, would need to add Doxy Increased appetite through afternoon 07/21 into evening, ate breakfast today after waking up, family assisting with lunch PT/OT consulted -- SNF recommended as not safe to return home and family not local. CM following and sent additional referrals. Medically stable for d/c when bed available if continued improvement on abx/PO intake stable Titrated to RA 07/21 as had been placed after zyprexa for periods of apnea. Did encounter patient while sleeping this morning initially, no distress or periods of apnea. No further zyprexa. If needed, would consider low dose seroquel 12.5mg HS prn *Constipation, added miralax BID. Check KUB given palpable stool. May need suppository. Monitor KUB (2) Atrial fibrillation with slow ventricular response: Plan: Avoid negative chronotropic's given bradycardic response, rates in 50-60s On coumadin and follows with coag clinic -- most recent notes indicate warfarin 2mg T//, 4mg all other days-- had been subtherapeutic INR 1.4 beginning of the month, but questions as to compliance of medications at home and to get warfarin only coumadin box. Continue protein drink 3x/wk w/ MV Will also order nutritional supplements 07/21 INR subtherapeutic at 1.2 on admission and had increased warfarin to 4mg daily Continued to be subtherapeutic 1.4 on 07/18 and 10mg warfarin provided and INR 1.7 on 07/19 INR then increased 2.3--> 2.8 (Coumadin HELD 07/20), likely from 10mg warfarin provided on 07/18 and given 2mg on 07/21 after discussion with coag clinic pharmacist Given switching to Cipro/INR 2.7, held 4mg dose 07/22 per discussion with pharmacy INR 2.1 on AM labs, resumed coumadin for today and monitor INR in AM --> end date for cipro 07/25 Given afib, keep K ~4, Mag ~2 (3) Dementia: Plan: Continue home donepezil, lexapro TSH 1.553 on admission B12 wnl With acute encephalopathy, now improved Given zyprexa evening 07/19, NOTHING since then. Not agitated for me during encounter Would avoid further antipsychotics unless absolutely needed, but can consider seroquel 12.5mg HS if needed Delirium precautions -- Needing placement at d/c as above. CM following. Placed on empiric thiamine as well IV 200mg daily 07/21 -- did not check B1 level but would continue for now, continue 100mg at least 1-2x/daily at d/c (4) Ataxia: Plan: PT/OT --> recommending home w/ HH vs SNF -- unable to accomodate at home (5) Hyperlipidemia: Plan: Continue atorvastatin (6) Hypertension: Plan: BP stable 138/74 Not on any BP medications Monitor Plan Family initially verbalized wishes to take him home with home health and will contact a list of private caregivers to assist them while they pursue shelter placement options. Lengthy d/w pt's , daughter, and son in conjunction with food manager on 07/18. Everyone was on board with plan. When arrived today (07/19) of which plan was to dc home with HH and hired caregivers, there was concern from the , RN caring for patient, and several family members regarding her ability to care for him if he returns home. After much deliberation back and forth, it was decided that the felt too insecure about her ability to care for him and it was decided to forgo discharge. Pt will remain in house until appropriate dc option has been made. Mentioned hospice as a possible option also, they will discuss this more as a family and determine if they would like to go that route. They are concerned with his decline even since being admitted to the hospital and given his progressive dementia, he would certainly qualify for hospice services. This could also be initiated once he arrives at a SNF. Given his functional decline and lack of behavioral disturbance, I do not think that he requires a locked memory support unit. dental laboratory manager was present for this conversation and will initiate sending referrals with permission of his family to SNFs within a 1 hour radius on 07/20. D/c has been cancelled and will remain in house until dc plan is finalized. CM following, additional referrals placed 07/21 --> [facility] and [facility] likely have bed and able to accept patient earlier next week. [facility] is family's first choice as very close to home. Awaiting bed Updated family at bedside 07/22 evening Admission and Anticipated Discharge Date Admission Date: July 17, 2022 Supervising Physician Co-Signing Physician Notes Chart reviewed and case discussed with PA. Agree with assessment and plan Subjective eval this morning, resting comfortable in bed, no acute distress +BS, but palpable stool. No recorded BM but prior reports possible. Will check KUB for eval, did order miralax BID as well. Continued good appetite. Awaiting placement. Updated family at bedside last evening. Touching base w/ pharmacy this afternoon for coag clinic, resumed Coumadin for today (did get 4mg yesterday). Physical Exam Physical Exam: General: frail elderly male resting comfortably in bed, NAD, alert only to person, states he is not sure what he is doing here HEENT: head normocephalic, mmm, trachea without deviation Resp: diminished in the bases, poor inspiratory effort at times, no wheezing/crackles, on room air, no respiratory distress CV: irregularly irregular (rates 80s), no m/r/g, no pitting edema, pulses palpable GI: +BS (slightly hypoactive), +palpable stool, minimally tender, no guarding/rigidity : no valero MSK/Neuro: no focal deficit, unable to follow commands at times due to dementia, no slurred speech/facial droop Psych: alert to person only, cooperative and calm during encounter, sleepy Results & Data Results & Data ([facility]) Vital Signs (Past 12 Hours) Vital Signs Temp Pulse Resp BP Pulse Ox O2 Del Method 07/22/22 22:06 37.0 C 86 16 147/82 H 99 Room Air Laboratory Results 07/23/22 07/23/22 Range/Units 08:03 08:03 PT 21.6 H (9.0-12.0) Seconds INR 2.1 H (0.9-1.1) Sodium 140 (136-145) mmol/L Potassium 4.5 (3.5-5.1) mmol/L Chloride 108 H (98-107) mmol/L Carbon Dioxide 30 (21-32) mmol/L Anion Gap 2 L (3-11) BUN 27 H (6-23) mg/dl Creatinine 0.85 (0.6-1.4) mg/dl Est Cr Clr Drug Dosing 51.0 ml/min Est GFR ( Amer) 92.1 ml/min Est GFR (Non-Af Amer) 79.5 ml/min BUN/Creatinine Ratio 31.8 H (10-20) Glucose 100 H (70-99(Fasting)) mg/dl Calcium 8.3 L (8.5-10.1) mg/dl Magnesium 1.9 (1.7-2.4) mg/dl PG Care Time/CCT Total # of Minutes Spent Total Time Spent with Patient: Total time spent is greater than 50% in coordination of care (as documented) at patient's floor/unit and/or counseling patient: Coding Level of Care Code 22318 Subseq Hosp Care Lvl 2 Diagnoses UTI (urinary tract infection) N39.0 Atrial fibrillation with slow ventricular response I48.91 Dementia F03.90 Ataxia R27.0 Hyperlipidemia E78.5 Hypertension I10
[2022-07-23 08:29] LABS: INR 2.1 (0.9-1.1); Prothrombin Time 21.6 Seconds (9.0-12.0)
[2022-07-23 08:59] LABS: BUN Creatinine Ratio 31.8 (10-20); Calcium 8.3 mg/dl (8.5-10.1); Est GFR (African American) 92.1 ml/min; Est GFR (Non-African American) 79.5 ml/min; Magnesium 1.9 mg/dl (1.7-2.4); Potassium 4.5 mmol/L (3.5-5.1)
[2022-07-23] MEDS: DOCUSATE SODIUM/SENNA 50/8.6MG TAB PO SCH (09:07)
[2022-07-23] MEDS: ESCITALOPRAM OXALATE 10 MG TAB PO SCH (09:08)
[2022-07-23] MEDS: MEMANTINE HCL 10 MG TAB PO SCH ×2 (09:08→20:57)
[2022-07-23] MEDS: CIPROFLOXACIN 500 MG TAB PO SCH ×2 (09:08→20:57)
[2022-07-23] MEDS: POLYETHYLENE (MIRALAX) 17 GM PACK PO SCH ×2 (09:16→20:58)
[2022-07-23] MEDS: THIAMINE HCL 100 MG TAB PO SCH ×2 (09:46→20:57)
[2022-07-23] MEDS ORDERED: MAGNESIUM SULFATE / D5W 1 GM/100 ML BAG IV ONE (11:45)
--- NOTE | 2022-07-23 12:45 | XRay Report ---
[facility] CLINICAL HISTORY: Evaluate constipation. COMPARISON STUDY: CT of the abdomen and pelvis February 08, 2021. FINDINGS: The bowel gas pattern is normal. There is no evidence for a bowel obstruction. A moderate a mount of stool within the colon and rectum is present. This is similar to prior CT. IMPRESSION: 1. No evidence for a bowel obstruction. 2. Moderate amount of stool within the colon and rectum. ACT 112: Negative or not required by law. Electronically signed by: Georgi Rosario M.D. 07/23/2022 12:43 PM
[2022-07-23] MEDS ORDERED: bisacodyL 10 MG SUPP PR STA (12:56)
[2022-07-23] MEDS: WARFARIN SOD 2 MG TAB PO SCH (15:51)
[2022-07-23] MEDS: MELATONIN 3 MG TAB PO PRN (20:57)
[2022-07-23] MEDS: TAMSULOSIN HCL 0.4 MG CAP PO SCH (20:57)
[2022-07-23] MEDS: ATORVASTATIN 40 MG TAB PO SCH (20:57)
[2022-07-23] MEDS: DONEPEZIL HCL 10 MG TAB PO SCH (20:57)
--- NOTE | 2022-07-24 08:16 | Hospitalist Progress Note ---
Date of Service July 24, 2022 Assessment & Plan (1) UTI (urinary tract infection): Plan: Metabolic encephalopathy 2/2 UTI + progressive dementia CT head w/o acute CVA. Noted atrophy and microvascular ischemic changes CXR w/o acute process EKG w/ afib w/ PVCs Urine culture with pseudomonas, coag negative staph * On ceftriaxone on admit (not covering pseudomonas) and switch to Cipro 07/19 which was then held and placed on Cefepime 2gm IV q8 for lethargy rather than using IV Cipro after zyprexa given overnight 07/19 for agitation/confusion * Given no epi on UA, CoNS not felt contaminant * Switch back to Cipro for 07/22 to complete course (complete after dosing 07/25) -- switched to IV given sleep/wake schedules and wanting to avoid any missed doses as patient usually not awake/eating until 10-11am Increased appetite through afternoon 07/21 into evening, ate breakfast 07/23 after waking up for the day. Family does assist when they visit in the evenings PT/OT consulted --> SNF, not safe to return home, family not local. CM folloring and ref sent --> [facility] Will have one additional dose PO cipro after AM dose to complete at SNF for UTI Remains on RA (had been placed on O2 w/ sedation after Zyprexa 07/19) and has not needed anything since. If needed, consider low dose seroquel 12.5mg HS. --Has been ordered melatonin 3mg HS. Did not sleep as much into AM on 07/21- 07/22, but has gotten this past two nights. Will change to have dose given earlier evening to help w/ sleep/wake schedule as typically gets restless later on and then sleeps in (2) Atrial fibrillation with slow ventricular response: Plan: Avoid negative chronotropic's given bradycardic response, rate controlled On coumadin and follows with coag clinic -- most recent notes indicate warfarin 2mg T//, 4mg all other days-- had been subtherapeutic INR 1.4 beginning of the month, but questions as to compliance of medications at home and to get warfarin only coumadin box. Continue protein drink 3x/wk w/ MV--> ordered nutritional supplements 07/21 and continued INR subtherapeutic at 1.2 on admission and had increased warfarin to 4mg daily however had continued to be subtherapeutic at 1.4 on 07/18 and 10mg Coumadin provided Had resumed prior schedule following and switched to Cipro as above for UTI INR 2.3--> 2.8 (Coumadin held 07/20, likely elevation from 10mg Coumadin on 07/18) and was given 2mg on 07/21 after discussion w/ coag clinic pharmacist but held 4mg dose for 07/22 for 20% reduction while on ABx w/ Cipro for INR 2.7 INR 2.1 on 07/23 and was given 2mg, INR currently 1.8 and due for 4mg dose for today. Coag clininc continuing to follow, will monitor INR in AM as suspect to rise given coumadin on 07/23 and will need continued f/u coag clinic touch base prior to d/c for any further recs for adjustment W/ Afib, keeping K~4, Mag ~2 (3) Dementia: Plan: Continue home donepezil, lexapro TSH 1.553 on admission B12 wnl With acute encephalopathy, now improved Given zyprexa evening 07/19, NOTHING since then. Not agitated for me during encounter Would avoid further antipsychotics unless absolutely needed, but can consider Seroquel 12.5mg HS if needed Delirium precautions -- Needing placement at d/c as above. CM following. Placed on empiric thiamine as well IV 200mg daily 07/21 -- did not check B1 level but would continue for now, continue 100mg at least 1-2x/daily at d/c (4) Ataxia: Plan: PT/OT --> recommending home w/ HH vs SNF -- unable to accomodate at home (5) Hyperlipidemia: Plan: Continue atorvastatin (6) Hypertension: Plan: BP stable, not on any medications (7) Constipation: Plan: in system, without documented BM from 07/18-- 07/23, however RN did believe possibly one undocumented BM in between Palpable stool on exam 07/23 and checked KUB -- moderate amount of stool in colon rectum had already added senna/docusate daily 07/21, miralax in AM 07/23 BID and rec'd to continue Asked RN to administer bisacodyl OH 07/23, +large BM following, additional BM today recorded Plan continued inpatient stay, CM following --> placement as not safe for return home, wanting memory unit/locked unit [facility] to have bed Monday, 07/25 Will need 1 more dose PO Cipro after AM dose to complete course for UTI Monitor INR in AM -- check in w/ coag clinic to ensure continued monitoring/adjustments at discharge if needed Admission and Anticipated Discharge Date Admission Date: July 17, 2022 Subjective sleepy this morning, pills crushed in pudding however not swallowed discussed with RN, occurred 2 days ago, consulted with speech, offered chocolate ice cream and patient without any issues afterwards. Did change to IV Cipro to avoid missing any doses of abx, however later then aide w/ patient taking PO. Discussed sleep schedule, was given melatonin last and night prior, not since 07/19. No acute distress noted, planning for [facility] tomorrow. Review of Systems Review of Systems: All systems reviewed & are unremarkable except as noted in HPI & below Physical Exam Physical Exam: General: frail elderly male resting comfortably flat in bed, NAD, alert to person/not time/events, pleasant/cooperative HEENT: head normocephalic, mmm, trachea without deviation Resp: diminished in the bases, poor inspiratory effort at times but no w/c on room air 98% CV: irregularly irregular (rates 60-70ss), no m/r/g, no pitting edema, pulses palpable GI: +BS, soft, nontender MSK/Neuro: no focal deficit, no facial droop, follows commands as able at times due to dementia but cooperative Psych: alert to person only, not agitated, baseline dementia Results & Data Results & Data ([facility]) Vital Signs (Past 12 Hours) Vital Signs Temp Pulse Resp BP Pulse Ox O2 Del Method 07/23/22 20:34 36.7 C 88 16 124/76 99 Room Air Laboratory Results 07/24/22 07/24/22 Range/Units 07:23 07:23 PT 18.2 H (9.0-12.0) Seconds INR 1.8 H (0.9-1.1) Sodium 140 (136-145) mmol/L Potassium 4.2 (3.5-5.1) mmol/L Chloride 106 (98-107) mmol/L Carbon Dioxide 31 (21-32) mmol/L Anion Gap 3 (3-11) BUN 24 H (6-23) mg/dl Creatinine 0.78 (0.6-1.4) mg/dl Est Cr Clr Drug Dosing 55.6 ml/min Est GFR ( Amer) 95.4 ml/min Est GFR (Non-Af Amer) 82.3 ml/min BUN/Creatinine Ratio 30.8 H (10-20) Glucose 92 (70-99(Fasting)) mg/dl Calcium 8.6 (8.5-10.1) mg/dl Magnesium 2.0 (1.7-2.4) mg/dl PG Care Time/CCT Total # of Minutes Spent Total Time Spent with Patient: Total time spent is greater than 50% in coordination of care (as documented) at patient's floor/unit and/or counseling patient: Coding Level of Care Code 12447 Subseq Hosp Care Lvl 2 Diagnoses UTI (urinary tract infection) N39.0 Atrial fibrillation with slow ventricular response I48.91 Dementia F03.90 Ataxia R27.0 Hyperlipidemia E78.5 Hypertension I10 Constipation K59.00
[2022-07-24 08:27] LABS: INR 1.8 (0.9-1.1); Prothrombin Time 18.2 Seconds (9.0-12.0)
[2022-07-24 08:30] LABS: BUN Creatinine Ratio 30.8 (10-20); Calcium 8.6 mg/dl (8.5-10.1); Creatinine Clr Calc Pharmacy 55.6 ml/min; Est GFR (African American) 95.4 ml/min; Est GFR (Non-African American) 82.3 ml/min; Potassium 4.2 mmol/L (3.5-5.1)
[2022-07-24] MEDS: CIPROFLOXACIN 500 MG TAB PO SCH ×3 (08:41→11:46)
[2022-07-24] MEDS: THIAMINE HCL 100 MG TAB PO SCH ×2 (11:03→19:53)
[2022-07-24] MEDS: MEMANTINE HCL 10 MG TAB PO SCH ×2 (11:03→19:54)
[2022-07-24] MEDS: POLYETHYLENE (MIRALAX) 17 GM PACK PO SCH ×2 (11:04→19:53)
[2022-07-24] MEDS: DOCUSATE SODIUM/SENNA 50/8.6MG TAB PO SCH (11:04)
[2022-07-24] MEDS: ESCITALOPRAM OXALATE 10 MG TAB PO SCH (11:04)
[2022-07-24] MEDS: CIPROFLOXACIN / D5W 400 MG/200 ML BAG IV SCH ×2 (13:26→21:04)
[2022-07-24] MEDS: WARFARIN SOD 4 MG TAB PO SCH (15:36)
[2022-07-24] MEDS ORDERED: MELATONIN 3 MG TAB PO SCH (19:00)
[2022-07-24] MEDS: DONEPEZIL HCL 10 MG TAB PO SCH (19:53)
[2022-07-24] MEDS: ATORVASTATIN 40 MG TAB PO SCH (19:53)
[2022-07-24] MEDS: TAMSULOSIN HCL 0.4 MG CAP PO SCH (19:53)
[2022-07-25 07:59] LABS: INR 1.7 (0.9-1.1); Prothrombin Time 17.7 Seconds (9.0-12.0)
[2022-07-25 08:25] LABS: BUN Creatinine Ratio 28.4 (10-20); Calcium 8.2 mg/dl (8.5-10.1); Creatinine Clr Calc Pharmacy 45.7 ml/min; Est GFR (African American) 84.3 ml/min; Est GFR (Non-African American) 72.7 ml/min; Potassium 4.5 mmol/L (3.5-5.1)
[2022-07-25] MEDS: POLYETHYLENE (MIRALAX) 17 GM PACK PO SCH (08:39)
[2022-07-25] MEDS: DOCUSATE SODIUM/SENNA 50/8.6MG TAB PO SCH (08:47)
[2022-07-25] MEDS: THIAMINE HCL 100 MG TAB PO SCH (08:48)
[2022-07-25] MEDS: MEMANTINE HCL 10 MG TAB PO SCH (08:48)
[2022-07-25] MEDS: ESCITALOPRAM OXALATE 10 MG TAB PO SCH (08:48)
[2022-07-25] MEDS: CIPROFLOXACIN / D5W 400 MG/200 ML BAG IV SCH (08:50)
--- NOTE | 2022-07-25 08:52 | Discharge Summary ---
Date of Service July 25, 2022 Admission HPI Per Admitting Provider Primary Care Provider: Evens Giron MD Selvin is an 87-year-old male with a past medical history of A. fib with bradycardia, ataxia, CAD, BPH with LUTS, hyperlipidemia, hypertension, chronic venous insufficiency, and dementia who has had increased agitation in the last several days on a baseline of underlying dementia. With polyuria History is limited by severe dementia. No elevated PVR. Patient history is severely limited by dementia. With polyuria in the ER. Seen with family. Has dementia. INcreasingly combative and verbally threatening at home. Agitated for several days, live alone with his who is also elderly with osteoporosis. Denies pain at bedside. No fevers/chills/sweats. No chest pain or chest pressure. NO polyuria at home, but having to pee very often in ER and notes has had increased urinary incontinence. notes that he has progressed to the point where she cannot safely care for him, and does not feel he is safe to be home. Would like placement into discussed with case man pierce. Medical History: Reviewed Medications: Reviewed Surgical History: Reviewed Allergies: Reviewed Social History: Reviewed Code Status: DNR/DNI. Discussed with family, would not want heroic measures Admission Exam Per Admitting Provider General: Prominent dementia. Oriented to name only. Unable to apply medical information to circumstances or give informed medical answers. HEENT: Atraumatic, normocephalic. Vision/hearing grossly intact Pulm: CTAB A&P. -wheezes, -rales, -rhonchi. Symmetrical chest rise. No increase in work of breathing. No respiratory distress. Cardiac: RRR, -mrg. Radial pulses intact and symmetrical. Abdominal: Nontender, nondistended, soft. BS present. Extremities: Warm, dry Principal Diagnosis UTI Discharge Exam General: frail elderly male resting comfortably flat in bed, getting cleaned up by staff, NAD, alert to person, but not time/events, pleasant and cooperative HEENT: head normocephalic, mmm, trachea without deviation Resp: diminished in the bases, poor inspiratory effort at times but no w/c on room air 98% CV: irregularly irregular (rates 60-70ss), no m/r/g, no pitting edema, pulses palpable GI: +BS, soft, nontender MSK/Neuro: no focal deficit, no facial droop, follows commands as able at times due to dementia but cooperative Psych: alert to person only, not agitated, baseline dementia Discharge Data Allergies Allergy/AdvReac Type Severity Reaction Status Date / Time Penicillins Allergy Mild UNKNOWN Verified 07/13/22 11:47 Sulfa (Sulfonamide Allergy Unknown UNKNOWN Verified 07/13/22 11:47 Antibiotics) thimerosal Allergy Unknown SWELLING Verified 07/13/22 11:47 AT SITE OF APPLICATION Consultations 07/16/22 18:31 ED Decision to Admit Stat Ordered Studies Chest X-Ray 07/16/22 17:00 XR chest 1V portable HISTORY: weakness COMPARISON: Chest 05/13/2021. FINDINGS: No pneumothorax. No pleural effusions. The heart remains mildly enlarged. There is mild chronic interstitial thickening, unchanged. No new focal lung consolidations to suggest a pneumonia. No evidence for pulmonary edema. Degenerative changes again noted within the shoulders. There is a electronic device seen within the left upper chest. IMPRESSION: Stable mild cardiomegaly. Otherwise, no acute process within the chest. ACT 112: Negative or not required by law. Electronically signed by: Cade Pak M.D. 07/16/2022 5:[address] 07/16/22 17:[address] DOSE: 614.27 mGy.cm HISTORY: Altered mental status. TECHNIQUE: Multiaxial CT images of the head were performed without the use of intravenous contrast. Automated exposure control was utilized for this study. A dose lowering technique was utilized adhering to the principles of ALARA. Comparison: Head CT 04/30/2022. Findings: The paranasal sinuses and mastoid air cells are clear. The calvarium and skull base are intact. There is no mass, hematoma, midline shift, acute infarct. White matter hypodensity is nonspecific but suggestive of microvascular ischemic change. The ventricles and sulci demonstrate mild age-related involutional changes. Impression: No acute intracranial abnormality. Atrophy and microvascular ischemic changes. ACT 112: Negative or not required by law. Electronically signed by: Cade Pak M.D. 07/16/2022 5:46 PM Chest X-Ray 07/21/22 11:41 SINGLE VIEW CHEST CLINICAL HISTORY: Volume overload. FINDINGS: An AP, portable, upright chest radiograph is compared to study dated 07/16/2022 and correlated with chest CT dated 06/23/2018. The examination is degraded by portable technique and patient rotation. An electronic device projects over the left mid chest. The heart is enlarged noting atherosclerotic calcification of the thoracic aorta. There is mild pulmonary vascular congestion. Chronic interstitial thickening similar to previous. Airspace consolidation is seen at the right lung base. There are scattered calcified granulomas. No large pleural effusion or pneumothorax is identified. The skeletal structures are osteopenic. The bony thorax is grossly intact. Arthritic change is seen in the shoulders. IMPRESSION: 1. Cardiomegaly with mild pulmonary vascular congestion. 2. There is right basilar consolidation, typical for pneumonia/aspiration pneumonitis. Clinical correlation will be required and radiographic follow-up to resolution is recommended. ACT 112: Negative or not required by law. Electronically signed by: Seferino Yost M.D. 07/21/2022 3:54 PM KUB X-Ray 07/23/22 11:47 KUB CLINICAL HISTORY: Evaluate constipation. COMPARISON STUDY: CT of the abdomen and pelvis February 08, 2021. FINDINGS: The bowel gas pattern is normal. There is no evidence for a bowel obstruction. A moderate amount of stool within the colon and rectum is present. This is similar to prior CT. IMPRESSION: 1. No evidence for a bowel obstruction. 2. Moderate amount of stool within the colon and rectum. ACT 112: Negative or not required by law. Electronically signed by: Georgi Rosario M.D. 07/23/2022 12:43 PM Hospital Course (1) UTI (urinary tract infection): Metabolic encephalopathy 2/2 UTI + progressive dementia CT head w/o acute CVA. Noted atrophy and microvascular ischemic changes CXR w/o acute process EKG w/ afib w/ PVCs Urine culture with pseudomonas, coag negative staph On ceftriaxone on admit (not covering pseudomonas) and switch to Cipro 07/19 which was then held and placed on Cefepime 2gm IV q8 for lethargy rather than using IV Cipro after zyprexa given overnight 07/19 for agitation/confusion Given no epi on UA, CoNS not felt contaminant --> Switch back to Cipro for 07/22 to complete course and made IV to prevent missing doses given sleep/wake schedule (imprvoed w/ switching melatonin to earlier in the evening around 7PM - can continue at d/c) --> To have completed course after dose this evening 07/25 -- 1 more tablet at [facility] Improvement in appetite/mood/no further agitation but dementia at baseline and impulsive Also given suppository to assit w/ BM as not having moved in several days, 2 BM large brown subsequent, continue bowel regimen at d/c PT/OT consulted and SNF planned at [facility] as not safe to return home/family not local (2) Atrial fibrillation with slow ventricular response: Avoid negative chronotropic's given bradycardic response, rate controlled On coumadin and follows with coag clinic -- most recent notes indicate warfarin 2mg T//, 4mg all other days-- had been subtherapeutic INR 1.4 beginning of the month, but questions as to compliance of medications at home and to get warfarin only coumadin box. Continue protein drink 3x/wk w/ MV--> ordered nutritional supplements 07/21 and continued -- rec continuing at [facility] INR subtherapeutic at 1.2 on admission and had increased warfarin to 4mg daily however had continued to be subtherapeutic at 1.4 on 07/18 and 10mg Coumadin provided Had resumed prior schedule following and switched to Cipro as above for UTI Held coumadin 07/22 (4mg dose while on cipro for INR 2.7), got 2mg on 07/23 --> INR 1.8. 4mg given --> INR 1.7 this morning prior to d/c Discussed w/ coag pharmacist and planning to give patient 6mg prior to d/c (usual 4mg dose, 2mg additional) and have repeat INR at [facility] tomorrow. They do not follow coag patients at [facility], but would be able to take over if ever d/c. Otherwise, can continue current schedule/adjustments based on repeat testing at [facility] (3) Dementia: Continue home donepezil, lexapro TSH 1.553 on admission B12 wnl With acute encephalopathy, now improved and pleasant/conversive/no further aggression (given zyprexa 07/19 w/ apnea/hypoxia, since resolved) Not agitated for me during encounter but impulsive when attempting to get up out of bed to pee If any issues in future would consider low dose seroquel 12.5mg HS if needed but would not schedule given patient stable off of anything since 07/19 Empiric thiamine given 200mg IV daily 07/21, transitioned to 100mg BID and continued at d/c (4) Ataxia: PT/OT --> recommending home w/ HH vs SNF -- unable to accommodate at home, [facility] planned as outlined (5) Hyperlipidemia: Continued atorvastatin (6) Hypertension: BP stable and is not on any medications (7) Constipation: in system, without documented BM from 07/18-- 07/23, however RN did believe possibly one undocumented BM in between Palpable stool on exam 07/23 and checked KUB -- moderate amount of stool in colon rectum-- had already added senna/docusate, miralax added subsequently Bisacodyl supp administered --> +BM x 2 Continue bowel regimen as needed at SNF, rec supp for no BM in 2 or more days Plan discharge to [facility] this afternoon to get coumadin 6mg total for today, to repeat INR tomorrow -- further adjustments at [facility] if needed Ciprofloxacin to complete tx for UTI -- 1 more dose after this morning to complete course for pseudomonas/CoNS UTI Total Time Total Time Spent Total Time Spent (In Minutes): 60 Discharge Plan Discharge Items Patient Disposition: Transfer Intermediate Fac Reason For Visit: uti, dementia, placement needs Discharge Diagnosis: urinary tract infection progressive dementia Condition on Discharge: Good Goals: You have been hospitalized for an acute medical problem. During your stay at [facility], we have made an effort to correct the problem that brought you to the hospital while keeping you as comfortable as possible. Medications were used to bring your condition under control and your discharge instructions will include directions for any medications you should take after leaving the hospital. Please make sure you see your Primary Care Provider as part of your follow up plan. Activity: Resume your previous activity Non-emergency contact: Primary Care Provider Call non-emergency contact if: you have any medication questions Follow-up/Referrals: Evens Giron MD [Primary Care Provider] - 07/25/22 11:00 am Diet: Regular Ambulatory Orders: Prothrombin Time INR (Routine) Timeframe: [id number] Location: Determined by Patient Ordered By: Noemi Borrego Addtl Attending Provider Instructions: You were hospitalized due to altered mental status manifested as aggression and agitated behavior which was felt to be secondary to a urinary tract infection. You were started on antibiotics and provided some gentle IV fluid hydration. You were found to have 2 different types of bacteria in your urine. You are almost done your treatment for UTI, and have an additional dose of Ciprofloxacin for tonight to complete your treatment. Options for senior living care placement were discussed, and your family has elected to bring you home. Home health services will be arranged, you will have a visiting nurse as well as physical and occupational therapy. A list of term[facility] inspector care facilities with memory support units as well as a list of private caregiver services has been provided to you. Regarding your Coumadin (Warfarin), you should take 6mg (SIX) coumadin for today and have repeat INR in AM -- THIS HAS BEEN PROVIDED TO YOU PRIOR TO DISCHARGE GIVEN LATER AFTERNOON DISCHARGE. Oncoming provider can make further adjustments/additional dosing if needed if not therapeutic on AM lab draw. If you remain at [facility], they will continue to manage your coumadin. If ever discharge, coag clinic can be contacted to resume care. Please continue nutritional supplements 3x/daily as well as previously recommended by coagulation clinic. You can continue miralax daily to help ensure moving your bowels, as this can cause worsening confusion and you have had several good bowel movements prior to discharge with addition of a bowel regimen. You may consider adding docusate/senna if no BM in 1-2 days to ensure staying regular. It is recommended that you follow up with your primary care provider within 1 week of discharge from the hospital. If you have any questions/concerns after you leave the hospital that cannot be answered by your primary care provider, feel free to contact the nonemergency number listed on your discharge paperwork. In the event of a medical emergency, call 911. It has been a pleasure caring for you while you have been in the hospital. Take care! Pending Studies at Discharge: No Stand-Alone Forms: My [facility] Skilled Items Patient informed of condition?: No (Family aware) DNR: Yes Discharge Level of Care: Skilled Communicable Disease: No Discharge Prognosis: Stable Lines: None Urinary Catheter: No Medications and DC Order Prescriptions: New thiamine HCl (vitamin B1) 100 mg Tablet 100 mg PO BID Qty: 60 0RF ciprofloxacin HCl 500 mg tablet 500 mg PO BID Qty: 1 0RF warfarin 2 mg tablet 2 mg PO .ONE Qty: 2 0RF Rx Instructions: to be taken 07/25 with usual 4mg dose melatonin 3 mg capsule 3 mg PO HS Qty: 30 0RF polyethylene glycol 3350 [Powderlax] 17 gram/dose powder 17 g PO DAILY Qty: 119 0RF Continued Men's 50 Plus Multivitamin 400-20-370 mcg tablet 1 tab PO QAM cholecalciferol (vitamin D3) [Vitamin D3] 1,000 unit (25 mcg) tablet 1,000 units PO QAM Qty: 0 alendronate 70 mg tablet 70 mg PO WK Qty: 12 3RF Rx Instructions: MONDAY escitalopram oxalate [Lexapro] 10 mg tablet 10 mg PO QAM Qty: 90 3RF warfarin 4 mg tablet See Rx Instructions PO UD Qty: 90 1RF Rx Instructions: 2mg q //, 4mg x 4 days per [facility] PO use as directed; Prilosec OTC 20 mg tablet,delayed release (DR/EC) 20 mg PO QAM Qty: 90 3RF donepezil 10 mg tablet 10 mg PO HS Qty: 90 3RF ascorbic acid (vitamin C) 500 mg capsule 500 mg PO QPM calcium carbonate [Calcium 600] 600 mg calcium (1,500 mg) tablet 600 mg PO AMPM memantine [Namenda] 10 mg tablet 10 mg PO BID 90 Days Qty: 180 3RF tamsulosin 0.4 mg capsule 0.4 mg PO HS atorvastatin [Lipitor] 40 mg tablet 40 mg PO HS Discharge Orders: Discharge Order (Routine); Ordered 07/25/22 Ordered By: Emilia Ross Admission Data Admit Date/Time: 07/17/22 12:41 Attending Provider: Kahlil Gorman Admit Provider: Evens Vicente Primary Care Provider: Evens Giron Other Providers: Evens Vicente ; [facility],Home Healthcare ; [place] ; [facility] ; [facility] ; [facility] ; M[facility] Ramires Coding Level of Care Code D/C DAY MANAGEMENT >30 MINS Diagnoses UTI (urinary tract infection) N39.0 Atrial fibrillation with slow ventricular response I48.91 Dementia F03.90 Ataxia R27.0 Hyperlipidemia E78.5 Hypertension I10 Constipation K59.00
[2022-07-25] MEDS ORDERED: PANTOprazole 40 MG TAB PO SCH (09:00)
[2022-07-25] MEDS: WARFARIN SOD 4 MG TAB PO SCH (15:24)
[2022-07-25] MEDS ORDERED: WARFARIN SOD 2 MG TAB PO ONE (16:00)
== END 2022-07-25 15:44 | DRG 689 ==
LOC: 3N 16:49 → ED 16:49 → SUATTDRO 18:49 → 3N 21:42 → SUATTDRO 07-17 12:41